=== PATIENT | female | born 1930 | race Caucasian/White ===

== ENCOUNTER 2017-05-20 15:17 | Emergency (ER) | payer MEDICARE, OTHER ==
[2017-05-20 18:50] LABS: ADD MAN DIFF? NO
[2017-05-20 18:55] LABS: WHITE BLOOD COUNT 8.5 10^3/ul (4.8-10.8)
[2017-05-20 18:55] LABS: BASOPHILS % 0.5 % (0.0-2.0); EOSINOPHILS # 0.3 10^3/ul (0.0-0.5); HEMATOCRIT 42.6 % (37.0-47.0); HEMOGLOBIN 14.6 g/dl (12.0-16.0); LYMPHOCYTES % 22.8 % (15.0-51.0); MEAN CORPUSCULAR HEMOGLOBIN 30.2 pg (29.0-33.0); MEAN CORPUSCULAR HGB CONC 34.3 g/dl (32.0-37.0); MEAN CORPUSCULAR VOLUME 88.2 fl (82.0-101.0); MEAN PLATELET VOLUME 10.1 fl (7.4-10.4); MONOCYTE # 0.6 10^3/ul (0.3-0.9); MONOCYTES % 7.5 % (0.0-11.0); NEUTROPHIL # 5.5 10^3/ul (1.6-7.5); NEUTROPHILS % 64.7 % (39.0-77.0); PLATELET COUNT 176 10^3/UL (140-415); RED BLOOD COUNT 4.83 10^6/ul (4.20-5.40); RED CELL DISTRIBUTION WIDTH 13.6 % (11.5-14.5)
[2017-05-20 19:10] LABS: ADD UMIC YES; UR ASCORBIC ACID NEGATIVE (NEGATIVE); UR BACTERIA FEW /HPF (NONE SEEN); UR BILIRUBIN (Dip) NEGATIVE (NEGATIVE); UR BLOOD (Dip) 1+ mg/dL (NEGATIVE); UR CLARITY CLEAR (CLEAR); UR COLOR STRAW (YELLOW); UR GLUCOSE (Dip) 3+ mg/dL (NEGATIVE); UR KETONES (Dip) NEGATIVE (NEGATIVE); UR LEUKOCYTE ESTERASE (Dip) TRACE Leu/ul (NEGATIVE); UR NITRITE (Dip) POSITIVE (NEGATIVE); UR RBC 0 /HPF (0-5); UR SPECIFIC GRAVITY (Dip) 1.012 (1.003-1.030); UR SQUAMOUS EPITHELIAL CELL FEW /HPF (FEW); UR TOTAL PROTEIN (Dip) NEGATIVE (NEGATIVE); UR UROBILINOGEN (Dip) NEGATIVE (NEGATIVE); UR WBC 15 /HPF (0-5)
[2017-05-20 19:20] LABS: ANION GAP 16 (8-16); BLOOD UREA NITROGEN 17 mg/dl (7-20); CALCIUM 9.3 mg/dl (8.4-10.2); CARBON DIOXIDE 28 mmol/L (21-31); CHLORIDE 105 mmol/L (97-110); CREATININE 0.65 mg/dl (0.44-1.00); GLUCOSE 117 mg/dl (70-220); POTASSIUM 3.9 mmol/L (3.5-5.1); SODIUM 145 mmol/L (135-144)
[2017-05-20 19:34] LABS: TROPONIN-I < 0.012 ng/ml (0.00-0.12)
[2017-05-20] MEDS: SOD CHLORIDE 0.9% 1,000 ML IV (22:04)
[2017-05-20] MEDS: CEFEPIME 1GM/50 ML (PMX) 50 ML IVPB (22:05)
== END 2017-05-21 00:40 | disposition home or self-care (01) ==
LOC: E/R 05-21 00:40
DX: S60.221A Contusion of right hand, initial encounter (principal); N39.0 Urinary tract infection, site not specified; I10 Essential (primary) hypertension; E11.9 Type 2 diabetes mellitus without complications; J45.909 Unspecified asthma, uncomplicated; I25.10 Atherosclerotic heart disease of native coronary artery without angina pectoris; E03.9 Hypothyroidism, unspecified; W01.0XXA Fall on same level from slipping, tripping and stumbling without subsequent striking against object, initial encounter; Y92.9 Unspecified place or not applicable; Z79.82 Long term (current) use of aspirin; Z79.4 Long term (current) use of insulin
CPT/HCPCS: 70450; 73130-RT; 80048; 81001; 84484; 85025; 93005; 96374; 99285-25

== ENCOUNTER 2017-06-10 20:26 | Emergency (ER) | payer MEDICARE, OTHER ==
[2017-06-10] MEDS: INSULIN GLARGINE [LANtus] 3 ML PEN SC (22:58)
== END 2017-06-10 23:03 | disposition home or self-care (01) ==
LOC: FTE 20:26
DX: E11.65 Type 2 diabetes mellitus with hyperglycemia (principal); J45.909 Unspecified asthma, uncomplicated; I25.10 Atherosclerotic heart disease of native coronary artery without angina pectoris; I10 Essential (primary) hypertension; E03.9 Hypothyroidism, unspecified; Z76.0 Encounter for issue of repeat prescription; Z79.4 Long term (current) use of insulin; Z79.82 Long term (current) use of aspirin
CPT/HCPCS: 82962; 96372; 99284-25

== ENCOUNTER 2017-06-25 16:01 | Emergency (ER) | payer MEDICARE, OTHER ==
[2017-06-25] MEDS: DIPHTH/TET/ACEL PERTUSS (ADULT) 0.5 ML VIAL IM* (17:09)
[2017-06-25] MEDS: BACITRACIN 0.9 GM OINT TOP (17:21)
== END 2017-06-25 18:57 | disposition home or self-care (01) ==
LOC: E/R 16:01
DX: S80.811A Abrasion, right lower leg, initial encounter (principal); E11.9 Type 2 diabetes mellitus without complications; X58.XXXA Exposure to other specified factors, initial encounter; Y92.9 Unspecified place or not applicable; Z23 Encounter for immunization; Z79.4 Long term (current) use of insulin; Z79.82 Long term (current) use of aspirin
CPT/HCPCS: 73590; 90471; 90715; 99283-25

== ENCOUNTER 2017-06-27 09:06 | Emergency (ER) | payer MEDICARE, OTHER | END 2017-06-27 10:42 | disposition home or self-care (01) | LOC: FTE 09:06 → E/R 10:42 | DX: Z48.01 Encounter for change or removal of surgical wound dressing (principal); E11.9 Type 2 diabetes mellitus without complications; Z79.4 Long term (current) use of insulin; Z79.82 Long term (current) use of aspirin | CPT/HCPCS: 99284 ==

== ENCOUNTER 2017-08-16 12:50 | Inpatient (IN) | payer MEDICARE, OTHER ==
[2017-08-16 13:38] LABS: ADD MAN DIFF? NO
[2017-08-16] MEDS ORDERED: SOD CHLORIDE 0.9% 500 ML IV (13:40)
[2017-08-16 13:41] LABS: BASOPHILS % 0.5 % (0.0-2.0); EOSINOPHILS # 0.3 10^3/ul (0.0-0.5); EOSINOPHILS % 3.1 % (0.0-7.0); HEMATOCRIT 43.3 % (37.0-47.0); HEMOGLOBIN 14.6 g/dl (12.0-16.0); LYMPHOCYTES # 2.4 10^3/ul (0.8-2.9); LYMPHOCYTES % 27.7 % (15.0-51.0); MEAN CORPUSCULAR HEMOGLOBIN 30.1 pg (29.0-33.0); MEAN CORPUSCULAR HGB CONC 33.7 g/dl (32.0-37.0); MEAN CORPUSCULAR VOLUME 89.3 fl (82.0-101.0); MEAN PLATELET VOLUME 9.4 fl (7.4-10.4); MONOCYTE # 0.6 10^3/ul (0.3-0.9); MONOCYTES % 6.8 % (0.0-11.0); NEUTROPHIL # 5.4 10^3/ul (1.6-7.5); NEUTROPHILS % 61.3 % (39.0-77.0); PLATELET COUNT 226 10^3/UL (140-415); RED BLOOD COUNT 4.85 10^6/ul (4.20-5.40); RED CELL DISTRIBUTION WIDTH 13.1 % (11.5-14.5)
[2017-08-16 13:41] LABS: WHITE BLOOD COUNT 8.7 10^3/ul (4.8-10.8)
[2017-08-16 14:00] LABS: INR 1.09; PROTIME 14.3 Sec (11.9-14.9); PT RATIO 1.1
[2017-08-16 14:01] LABS: PARTIAL THROMBOPLASTIN TIME 52.6 Sec (25.0-35.0)
[2017-08-16 14:10] LABS: ALANINE AMINOTRANSFERASE 29 IU/L (13-69); ALBUMIN 4.2 g/dl (3.3-4.9); ALBUMIN/GLOBULIN RATIO 1.23; ALKALINE PHOSPHATASE 124 IU/L (42-121); ANION GAP 18 (8-16); ASPARTATE AMINO TRANSFERASE 21 IU/L (15-46); BILIRUBIN,INDIRECT 0.4 mg/dl (0-1.1); BILIRUBIN,TOTAL 0.4 mg/dl (0.2-1.3); BLOOD UREA NITROGEN 19 mg/dl (7-20); CALCIUM 9.6 mg/dl (8.4-10.2); CARBON DIOXIDE 29 mmol/L (21-31); CHLORIDE 103 mmol/L (97-110); CREATINE KINASE 51 IU/L (23-200); CREATININE 0.62 mg/dl (0.44-1.00); GLUCOSE 101 mg/dl (70-220); POTASSIUM 4.1 mmol/L (3.5-5.1); SODIUM 146 mmol/L (135-144); TOTAL PROTEIN 7.6 g/dl (6.1-8.1)
[2017-08-16 14:22] LABS: CK-MB 1.04 ng/ml (0.0-2.4); TROPONIN-I < 0.010 ng/ml (0.000-0.120)
[2017-08-16 14:35] LABS: B-TYPE NATRIURETIC PEPTIDE 173 PG/ML (0-450)
[2017-08-16] MEDS: SOD CHLORIDE 0.9% 500 ML IV (14:41)
[2017-08-16 14:43] LABS: FREE THYROXINE INDEX (Calc) 3.72 ug/ml (0.65-3.89); T3 UPTAKE 34.1 % (23.5-40.5); T4 (THYROXINE) 10.9 ug/dl (5.5-11.0)
[2017-08-16] MEDS ORDERED: ACETAMINOPHEN 325 MG TAB PO ×3 (17:00→19:00)
[2017-08-16] MEDS ORDERED: ONDANSETRON 4 MG INJ IV ×2 (17:00→19:00)
[2017-08-16] MEDS ORDERED: NA PHOSPHATE/BIPHOS 133 ML ENEMA PR (19:00)
[2017-08-16] MEDS ORDERED: NACL 0.9% 3 ML SYG IV (19:00)
[2017-08-16] MEDS ORDERED: hydrALAzine 20 MG INJ IV (19:00)
[2017-08-16] MEDS ORDERED: MAGNESIUM HYDROXIDE 30ML CUP PO (19:00)
[2017-08-16] MEDS ORDERED: ALBUTEROL/IPRATROPIUM (NEB) 3 ML AMP HHN (19:00)
[2017-08-16] MEDS ORDERED: NITROGLYCERIN (SL) 0.4 MG TAB SL (19:00)
[2017-08-16] MEDS ORDERED: HYDROCODONE/APAP (5/325) TAB PO (19:00)
[2017-08-16] MEDS ORDERED: morphine 2 MG INJ IV (19:00)
[2017-08-16 19:19] LABS: CREATINE KINASE 53 IU/L (23-200)
[2017-08-16] MEDS ORDERED: DEXTROSE 50% 50 ML SYRINGE IV (19:30)
[2017-08-16] MEDS ORDERED: GLUCOSE GEL 15 GRAM TUBE PO ×2 (19:30)
[2017-08-16] MEDS ORDERED: GLUCOSE GEL 15 GRAM TUBE BUCCAL (19:30)
[2017-08-16] MEDS ORDERED: PANTOPRAZOLE (EC) 40 MG TAB PO (19:30)
[2017-08-16] MEDS ORDERED: GLUCAGON 1 MG INJ IM (19:30)
[2017-08-16 19:31] LABS: CK INDEX 2.2; CK-MB 1.15 ng/ml (0.0-2.4); TROPONIN-I < 0.010 ng/ml (0.000-0.120)
[2017-08-16 19:38] LABS: FREE T4 (FREE THYROXINE) 1.11 ng/dl (0.85-1.93)
[2017-08-16] MEDS: SOD CHLORIDE 0.45% 1,000 ML IV (20:02)
[2017-08-16] MEDS: LORAZEPAM 2 MG INJ IV (20:11)
[2017-08-16] MEDS: INSULIN ASPART [NOVOLOG] 3 ML PEN SC (21:00)
[2017-08-16] MEDS: FAMOTIDINE 20 MG TAB PO (21:58)
[2017-08-16] MEDS: PENTOXIFYLLINE (SR) 400 MG TAB PO (21:58)
[2017-08-16] MEDS: ROPINIROLE 0.25 MG TAB PO (21:58)
[2017-08-16] MEDS: ATORVASTATIN 10 MG TAB PO (21:58)
[2017-08-16] MEDS: GABAPENTIN 300 MG CAP PO (21:58)
[2017-08-16] MEDS: HEPARIN 5,000 UNIT/0.5 ML VIAL SC (22:00)
[2017-08-16] MEDS: INSULIN GLARGINE [LANtus] 3 ML PEN SC (22:02)
[2017-08-17] MEDS: INSULIN ASPART [NOVOLOG] 3 ML PEN SC ×6 (01:00→21:00)
[2017-08-17 01:13] LABS: CREATINE KINASE 55 IU/L (23-200)
[2017-08-17 01:23] LABS: CK INDEX 2.4; CK-MB 1.32 ng/ml (0.0-2.4); TROPONIN-I < 0.010 ng/ml (0.000-0.120)
[2017-08-17] MEDS: ACCU-CHEK XX (02:00)
[2017-08-17] MEDS: LEVOTHYROXINE 100 MCG TAB PO (07:00)
[2017-08-17] MEDS: SOD CHLORIDE 0.45% 1,000 ML IV ×2 (07:44→12:01)
[2017-08-17] MEDS ORDERED: NON-FORMULARY/PATIENT OWN MED (Linaclotide (Linzess) 145 MCG) PO (09:00)
[2017-08-17] MEDS: HEPARIN 5,000 UNIT/0.5 ML VIAL SC ×2 (09:09→20:56)
[2017-08-17] MEDS: DEXTROSE 50% 50 ML SYRINGE IV (09:15)
[2017-08-17 09:37] LABS: ADD MAN DIFF? NO
[2017-08-17 09:43] LABS: BASOPHILS % 0.5 % (0.0-2.0); EOSINOPHILS # 0.3 10^3/ul (0.0-0.5); EOSINOPHILS % 3.3 % (0.0-7.0); HEMATOCRIT 41.2 % (37.0-47.0); HEMOGLOBIN 13.9 g/dl (12.0-16.0); LYMPHOCYTES # 2.2 10^3/ul (0.8-2.9); LYMPHOCYTES % 27.4 % (15.0-51.0); MEAN CORPUSCULAR HEMOGLOBIN 30.3 pg (29.0-33.0); MEAN CORPUSCULAR HGB CONC 33.7 g/dl (32.0-37.0); MEAN PLATELET VOLUME 9.9 fl (7.4-10.4); MONOCYTE # 0.6 10^3/ul (0.3-0.9); MONOCYTES % 7.3 % (0.0-11.0); PLATELET COUNT 219 10^3/UL (140-415); RED BLOOD COUNT 4.58 10^6/ul (4.20-5.40); RED CELL DISTRIBUTION WIDTH 13.1 % (11.5-14.5)
[2017-08-17 09:43] LABS: WHITE BLOOD COUNT 8.2 10^3/ul (4.8-10.8)
[2017-08-17] MEDS: TOLTERODINE (SR) 4 MG CAP PO (09:47)
[2017-08-17] MEDS: PENTOXIFYLLINE (SR) 400 MG TAB PO ×2 (09:48→20:46)
[2017-08-17] MEDS: OXYBUTYNIN (XL) 5 MG TAB PO (09:48)
[2017-08-17] MEDS: CHOLECALCIFEROL 2,000 UNIT CAP PO (09:49)
[2017-08-17] MEDS: GABAPENTIN 300 MG CAP PO ×3 (09:49→20:47)
[2017-08-17] MEDS: LORATADINE 10 MG TAB PO (09:49)
[2017-08-17] MEDS: FUROSEMIDE 20 MG TAB PO (09:50)
[2017-08-17] MEDS: FAMOTIDINE 20 MG TAB PO (09:50)
[2017-08-17] MEDS: CLOPIDOGREL 75 MG TAB PO (09:50)
[2017-08-17] MEDS: ASPIRIN (EC) 325 MG TAB PO (09:51)
[2017-08-17] MEDS: EMPAGLIFLOZIN 10 MG TABLET PO (09:51)
[2017-08-17] MEDS: CYANOCOBALAMIN 500 MCG TAB PO (09:54)
[2017-08-17] MEDS: Linaclotide (Linzess) 145 MCG XX ×2 (10:00→17:07)
[2017-08-17 10:06] LABS: HDL CHOLESTEROL 39 mg/dl (33-92); LDL CHOLESTEROL,CALCULATED 51 mg/dl; TRIGLYCERIDES 152 mg/dl (0-149)
[2017-08-17 10:06] LABS: CHOLESTEROL 120 mg/dl (100-200)
[2017-08-17 10:45] LABS: ANION GAP 11 (8-16); BLOOD UREA NITROGEN 14 mg/dl (7-20); CALCIUM 8.9 mg/dl (8.4-10.2); CARBON DIOXIDE 27 mmol/L (21-31); CHLORIDE 110 mmol/L (97-110); CREATININE 0.61 mg/dl (0.44-1.00); MAGNESIUM 1.8 mg/dl (1.7-2.5); PHOSPHORUS 3.4 mg/dl (2.5-4.9); POTASSIUM 3.4 mmol/L (3.5-5.1); SODIUM 145 mmol/L (135-144)
[2017-08-17 10:48] LABS: GLUCOSE 49 mg/dl (70-220)
[2017-08-17 11:28] LABS: HEMOGLOBIN A1C 7.8 % (0-5.9)
[2017-08-17] MEDS: POTASSIUM CHLORIDE (SR) 20 MEQ TAB PO (12:30)
[2017-08-17] MEDS: ROPINIROLE 0.25 MG TAB PO (20:46)
[2017-08-17] MEDS: ATORVASTATIN 10 MG TAB PO (20:46)
[2017-08-17] MEDS: INSULIN GLARGINE [LANtus] 3 ML PEN SC (20:55)
[2017-08-18] MEDS: ACCU-CHEK XX (02:00)
[2017-08-18] MEDS: Linaclotide (Linzess) 145 MCG XX (02:00)
[2017-08-18] MEDS: LEVOTHYROXINE 100 MCG TAB PO (06:14)
[2017-08-18] MEDS ORDERED: ACCU-CHEK XX (07:25)
[2017-08-18] MEDS: INSULIN ASPART [NOVOLOG] 3 ML PEN SC ×3 (07:55→17:11)
[2017-08-18 08:48] LABS: ADD MAN DIFF? NO
[2017-08-18 08:59] LABS: BASOPHILS % 0.4 % (0.0-2.0); EOSINOPHILS # 0.3 10^3/ul (0.0-0.5); EOSINOPHILS % 3.7 % (0.0-7.0); HEMOGLOBIN 14.3 g/dl (12.0-16.0); LYMPHOCYTES # 2.3 10^3/ul (0.8-2.9); LYMPHOCYTES % 25.4 % (15.0-51.0); MEAN CORPUSCULAR HEMOGLOBIN 30.4 pg (29.0-33.0); MEAN CORPUSCULAR HGB CONC 33.3 g/dl (32.0-37.0); MEAN CORPUSCULAR VOLUME 91.3 fl (82.0-101.0); MEAN PLATELET VOLUME 10.1 fl (7.4-10.4); MONOCYTE # 0.8 10^3/ul (0.3-0.9); MONOCYTES % 8.6 % (0.0-11.0); NEUTROPHIL # 5.5 10^3/ul (1.6-7.5); NEUTROPHILS % 61.3 % (39.0-77.0); PLATELET COUNT 209 10^3/UL (140-415); RED BLOOD COUNT 4.71 10^6/ul (4.20-5.40); RED CELL DISTRIBUTION WIDTH 13.3 % (11.5-14.5)
[2017-08-18 08:59] LABS: WHITE BLOOD COUNT 8.9 10^3/ul (4.8-10.8)
[2017-08-18] MEDS: FAMOTIDINE 20 MG TAB PO (09:02)
[2017-08-18] MEDS: CLOPIDOGREL 75 MG TAB PO (09:02)
[2017-08-18] MEDS: CHOLECALCIFEROL 2,000 UNIT CAP PO (09:02)
[2017-08-18] MEDS: PENTOXIFYLLINE (SR) 400 MG TAB PO (09:02)
[2017-08-18] MEDS: TOLTERODINE (SR) 4 MG CAP PO (09:02)
[2017-08-18] MEDS: LORATADINE 10 MG TAB PO (09:03)
[2017-08-18] MEDS: GABAPENTIN 300 MG CAP PO ×2 (09:03→14:05)
[2017-08-18] MEDS: OXYBUTYNIN (XL) 5 MG TAB PO (09:03)
[2017-08-18] MEDS: EMPAGLIFLOZIN 10 MG TABLET PO (09:04)
[2017-08-18] MEDS: CYANOCOBALAMIN 500 MCG TAB PO (09:04)
[2017-08-18] MEDS: FUROSEMIDE 20 MG TAB PO (09:04)
[2017-08-18] MEDS: ASPIRIN (EC) 325 MG TAB PO (09:05)
[2017-08-18] MEDS: HEPARIN 5,000 UNIT/0.5 ML VIAL SC (09:08)
[2017-08-18] MEDS: DOCUSATE SODIUM 100 MG CAP PO (09:09)
[2017-08-18 09:22] LABS: ANION GAP 13 (8-16); BLOOD UREA NITROGEN 18 mg/dl (7-20); CALCIUM 9.2 mg/dl (8.4-10.2); CARBON DIOXIDE 25 mmol/L (21-31); CHLORIDE 109 mmol/L (97-110); CREATININE 0.77 mg/dl (0.44-1.00); GLUCOSE 110 mg/dl (70-220); POTASSIUM 3.8 mmol/L (3.5-5.1); SODIUM 143 mmol/L (135-144)
== END 2017-08-18 18:47 | DRG 313 ==
LOC: E/R 12:50 → TEL 16:50
DX: R07.9 Chest pain, unspecified (principal); S00.01XA Abrasion of scalp, initial encounter; W19.XXXA Unspecified fall, initial encounter; Z79.02 Long term (current) use of antithrombotics/antiplatelets; Z95.5 Presence of coronary angioplasty implant and graft; E11.9 Type 2 diabetes mellitus without complications; E78.00 Pure hypercholesterolemia, unspecified
CPT/HCPCS: 70450; 70551; 71045; 72125; 80048; 80053; 80061; 82550; 82553; 82962; 83036; 83735; 83880; 84100; 84436; 84439; 84443; 84479; 84484; 85025; 85610; 85730; 92610; 93005; 93306; 93880; 93970; 97116; 97162; 97165; 97530; 99285-25; G0378

== ENCOUNTER 2017-08-18 18:52 | Inpatient (IN) | payer MEDICARE, OTHER ==
[2017-08-18] MEDS ORDERED: GLUCOSE GEL 15 GRAM TUBE PO ×2 (20:55)
[2017-08-18] MEDS ORDERED: GLUCOSE GEL 15 GRAM TUBE BUCCAL (20:55)
[2017-08-18] MEDS ORDERED: morphine 2 MG INJ IV (20:55)
[2017-08-18] MEDS ORDERED: ONDANSETRON 4 MG INJ IV (20:55)
[2017-08-18] MEDS: Linaclotide (Linzess) 145 MCG XX (20:55)
[2017-08-18] MEDS ORDERED: NACL 0.9% 3 ML SYG IV (20:55)
[2017-08-18] MEDS ORDERED: GLUCAGON 1 MG INJ IM (20:55)
[2017-08-18] MEDS ORDERED: DEXTROSE 50% 50 ML SYRINGE IV ×2 (20:55)
[2017-08-18] MEDS ORDERED: hydrALAzine 20 MG INJ IV (20:55)
[2017-08-18] MEDS ORDERED: NA PHOSPHATE/BIPHOS 133 ML ENEMA PR (20:55)
[2017-08-18] MEDS: INSULIN ASPART [NOVOLOG] 3 ML PEN SC (21:00)
[2017-08-18] MEDS: GABAPENTIN 300 MG CAP PO (21:33)
[2017-08-18] MEDS: PENTOXIFYLLINE (SR) 400 MG TAB PO (21:34)
[2017-08-18] MEDS: ROPINIROLE 0.25 MG TAB PO (21:34)
[2017-08-18] MEDS: ATORVASTATIN 10 MG TAB PO (21:34)
[2017-08-18] MEDS: HEPARIN 5,000 UNIT/0.5 ML VIAL SC (21:41)
[2017-08-19] MEDS: ACCU-CHEK XX (02:00)
[2017-08-19 03:35] LABS: ADD UMIC YES; UR ASCORBIC ACID NEGATIVE (NEGATIVE); UR BACTERIA FEW /HPF (NONE SEEN); UR BILIRUBIN (Dip) NEGATIVE (NEGATIVE); UR BLOOD (Dip) 1+ mg/dL (NEGATIVE); UR BUDDING YEAST FEW /HPF (NONE SEEN); UR CLARITY CLOUDY (CLEAR); UR COLOR YELLOW (YELLOW); UR GLUCOSE (Dip) 3+ mg/dL (NEGATIVE); UR KETONES (Dip) NEGATIVE (NEGATIVE); UR LEUKOCYTE ESTERASE (Dip) 3+ Leu/ul (NEGATIVE); UR NITRITE (Dip) NEGATIVE (NEGATIVE); UR RBC 6 /HPF (0-5); UR SPECIFIC GRAVITY (Dip) 1.017 (1.003-1.030); UR SQUAMOUS EPITHELIAL CELL FEW /HPF (FEW); UR TOTAL PROTEIN (Dip) NEGATIVE (NEGATIVE); UR UROBILINOGEN (Dip) NEGATIVE (NEGATIVE); UR WBC 182 /HPF (0-5)
[2017-08-19] MEDS: Linaclotide (Linzess) 145 MCG XX ×2 (04:55→12:48)
[2017-08-19] MEDS ORDERED: BISACODYL 10 MG SUPP PR (05:00)
[2017-08-19] MEDS: LEVOTHYROXINE 100 MCG TAB PO (06:13)
[2017-08-19] MEDS: MAGNESIUM HYDROXIDE 30ML CUP PO (06:13)
[2017-08-19 07:10] LABS: ADD MAN DIFF? NO
[2017-08-19 07:14] LABS: BASOPHIL # 0.1 10^3/ul (0.0-0.1); BASOPHILS % 0.8 % (0.0-2.0); EOSINOPHILS # 0.3 10^3/ul (0.0-0.5); EOSINOPHILS % 4.3 % (0.0-7.0); HEMATOCRIT 45.1 % (37.0-47.0); HEMOGLOBIN 14.8 g/dl (12.0-16.0); LYMPHOCYTES # 2.1 10^3/ul (0.8-2.9); LYMPHOCYTES % 26.5 % (15.0-51.0); MEAN CORPUSCULAR HEMOGLOBIN 30.1 pg (29.0-33.0); MEAN CORPUSCULAR HGB CONC 32.8 g/dl (32.0-37.0); MEAN CORPUSCULAR VOLUME 91.9 fl (82.0-101.0); MEAN PLATELET VOLUME 9.7 fl (7.4-10.4); MONOCYTE # 0.8 10^3/ul (0.3-0.9); MONOCYTES % 9.8 % (0.0-11.0); NEUTROPHIL # 4.7 10^3/ul (1.6-7.5); NEUTROPHILS % 58.2 % (39.0-77.0); PLATELET COUNT 201 10^3/UL (140-415); RED BLOOD COUNT 4.91 10^6/ul (4.20-5.40); RED CELL DISTRIBUTION WIDTH 13.2 % (11.5-14.5)
[2017-08-19] MEDS: INSULIN ASPART [NOVOLOG] 3 ML PEN SC ×4 (07:35→20:23)
[2017-08-19 08:00] LABS: ALANINE AMINOTRANSFERASE 23 IU/L (13-69); ALBUMIN 3.7 g/dl (3.3-4.9); ALBUMIN/GLOBULIN RATIO 1.15; ALKALINE PHOSPHATASE 98 IU/L (42-121); ANION GAP 15 (8-16); ASPARTATE AMINO TRANSFERASE 19 IU/L (15-46); BILIRUBIN,INDIRECT 0.8 mg/dl (0-1.1); BILIRUBIN,TOTAL 0.8 mg/dl (0.2-1.3); BLOOD UREA NITROGEN 23 mg/dl (7-20); CALCIUM 9.1 mg/dl (8.4-10.2); CARBON DIOXIDE 27 mmol/L (21-31); CHLORIDE 105 mmol/L (97-110); CREATININE 0.87 mg/dl (0.44-1.00); GLUCOSE 142 mg/dl (70-220); POTASSIUM 3.8 mmol/L (3.5-5.1); SODIUM 143 mmol/L (135-144); TOTAL PROTEIN 6.9 g/dl (6.1-8.1)
[2017-08-19] MEDS: LACTULOSE 30ML CUP PO (08:39)
[2017-08-19] MEDS: GABAPENTIN 300 MG CAP PO ×3 (08:40→20:21)
[2017-08-19] MEDS: LORATADINE 10 MG TAB PO (08:40)
[2017-08-19] MEDS: ASPIRIN (EC) 325 MG TAB PO (08:40)
[2017-08-19] MEDS: TOLTERODINE (SR) 4 MG CAP PO (08:40)
[2017-08-19] MEDS: EMPAGLIFLOZIN 10 MG TABLET PO (08:40)
[2017-08-19] MEDS: FAMOTIDINE 20 MG TAB PO (08:40)
[2017-08-19] MEDS: OXYBUTYNIN (XL) 5 MG TAB PO (08:40)
[2017-08-19] MEDS: CHOLECALCIFEROL 2,000 UNIT CAP PO (08:41)
[2017-08-19] MEDS: PENTOXIFYLLINE (SR) 400 MG TAB PO ×2 (08:41→20:21)
[2017-08-19] MEDS: CYANOCOBALAMIN 500 MCG TAB PO (08:41)
[2017-08-19] MEDS: CLOPIDOGREL 75 MG TAB PO (08:41)
[2017-08-19] MEDS: FUROSEMIDE 20 MG TAB PO (08:42)
[2017-08-19] MEDS: HEPARIN 5,000 UNIT/0.5 ML VIAL SC ×2 (08:43→20:24)
[2017-08-19] MEDS: NON-FORMULARY/PATIENT OWN MED (Linaclotide (Linzess) 145 MCG) PO (08:44)
[2017-08-19] MEDS: ACETAMINOPHEN 325 MG TAB PO (10:43)
[2017-08-19] MEDS: LINACLOTIDE 145 MCG PO (15:47)
[2017-08-19] MEDS: LEVOFLOXACIN 500 MG TAB PO (17:07)
[2017-08-19] MEDS: ATORVASTATIN 10 MG TAB PO (20:20)
[2017-08-19] MEDS: ROPINIROLE 0.25 MG TAB PO (20:21)
[2017-08-19] MEDS: INSULIN GLARGINE [LANtus] 3 ML PEN SC (20:22)
[2017-08-20] MEDS: ACCU-CHEK XX (02:36)
[2017-08-20] MEDS: LEVOFLOXACIN 250 MG TAB PO (05:33)
[2017-08-20] MEDS: LEVOTHYROXINE 100 MCG TAB PO (05:33)
[2017-08-20] MEDS: INSULIN ASPART [NOVOLOG] 3 ML PEN SC ×4 (07:35→20:39)
[2017-08-20] MEDS: LINACLOTIDE 145 MCG PO (08:44)
[2017-08-20] MEDS: FAMOTIDINE 20 MG TAB PO (08:45)
[2017-08-20] MEDS: PENTOXIFYLLINE (SR) 400 MG TAB PO ×2 (08:45→20:32)
[2017-08-20] MEDS: EMPAGLIFLOZIN 10 MG TABLET PO (08:45)
[2017-08-20] MEDS: TOLTERODINE (SR) 4 MG CAP PO (08:45)
[2017-08-20] MEDS: GABAPENTIN 300 MG CAP PO ×3 (08:46→20:31)
[2017-08-20] MEDS: OXYBUTYNIN (XL) 5 MG TAB PO (08:46)
[2017-08-20] MEDS: CHOLECALCIFEROL 2,000 UNIT CAP PO (08:46)
[2017-08-20] MEDS: CYANOCOBALAMIN 500 MCG TAB PO (08:46)
[2017-08-20] MEDS: ASPIRIN (EC) 325 MG TAB PO (08:46)
[2017-08-20] MEDS: CLOPIDOGREL 75 MG TAB PO (08:46)
[2017-08-20] MEDS: DOCUSATE SODIUM 100 MG CAP PO (08:46)
[2017-08-20] MEDS: LORATADINE 10 MG TAB PO (08:46)
[2017-08-20] MEDS: FUROSEMIDE 20 MG TAB PO (08:47)
[2017-08-20] MEDS: HEPARIN 5,000 UNIT/0.5 ML VIAL SC ×2 (08:51→20:41)
[2017-08-20] MEDS: CARBOXYMETHYLCELLULOSE 0.5% 0.4 ML OPH BOTH EYES ×3 (12:38→20:34)
[2017-08-20] MEDS: ATORVASTATIN 10 MG TAB PO (20:31)
[2017-08-20] MEDS: ROPINIROLE 0.25 MG TAB PO (20:32)
[2017-08-20] MEDS: INSULIN GLARGINE [LANtus] 3 ML PEN SC (20:40)
[2017-08-21] MEDS: ALBUTEROL/IPRATROPIUM (NEB) 3 ML AMP HHN (00:24)
[2017-08-21] MEDS: NITROGLYCERIN (SL) 0.4 MG TAB SL ×2 (00:29→00:36)
[2017-08-21] MEDS: ACCU-CHEK XX (02:00)
[2017-08-21] MEDS: LEVOFLOXACIN 250 MG TAB PO (05:50)
[2017-08-21] MEDS: LEVOTHYROXINE 100 MCG TAB PO (05:50)
[2017-08-21] MEDS: INSULIN ASPART [NOVOLOG] 3 ML PEN SC ×4 (08:59→20:43)
[2017-08-21] MEDS: CHOLECALCIFEROL 2,000 UNIT CAP PO (09:01)
[2017-08-21] MEDS: HEPARIN 5,000 UNIT/0.5 ML VIAL SC ×2 (09:01→20:42)
[2017-08-21] MEDS: CYANOCOBALAMIN 500 MCG TAB PO (09:01)
[2017-08-21] MEDS: LINAGLIPTIN 5 MG TABLET PO (09:02)
[2017-08-21] MEDS: TOLTERODINE (SR) 4 MG CAP PO (09:02)
[2017-08-21] MEDS: LORATADINE 10 MG TAB PO (09:03)
[2017-08-21] MEDS: LINACLOTIDE 145 MCG PO (09:03)
[2017-08-21] MEDS: CARBOXYMETHYLCELLULOSE 0.5% 0.4 ML OPH BOTH EYES ×4 (09:03→20:40)
[2017-08-21] MEDS: PENTOXIFYLLINE (SR) 400 MG TAB PO ×3 (09:04→17:29)
[2017-08-21] MEDS: OXYBUTYNIN (XL) 5 MG TAB PO (09:04)
[2017-08-21] MEDS: FUROSEMIDE 20 MG TAB PO (09:05)
[2017-08-21] MEDS: FAMOTIDINE 20 MG TAB PO (09:05)
[2017-08-21] MEDS: GABAPENTIN 300 MG CAP PO ×3 (09:05→20:40)
[2017-08-21] MEDS: CLOPIDOGREL 75 MG TAB PO (09:05)
[2017-08-21] MEDS: ASPIRIN (EC) 325 MG TAB PO (09:05)
[2017-08-21] MEDS: EMPAGLIFLOZIN 10 MG TABLET PO (09:05)
[2017-08-21] MEDS: METOPROLOL (XL) 25 MG TAB PO ×2 (09:24→20:41)
[2017-08-21] MEDS: ATORVASTATIN 10 MG TAB PO (20:41)
[2017-08-21] MEDS: INSULIN GLARGINE [LANtus] 3 ML PEN SC (20:43)
[2017-08-21] MEDS: ROPINIROLE 0.25 MG TAB PO (20:44)
[2017-08-21 22:45] LABS: ADD UMIC YES; UR ASCORBIC ACID NEGATIVE (NEGATIVE); UR BACTERIA FEW /HPF (NONE SEEN); UR BILIRUBIN (Dip) NEGATIVE (NEGATIVE); UR BLOOD (Dip) NEGATIVE (NEGATIVE); UR CLARITY CLEAR (CLEAR); UR COLOR STRAW (YELLOW); UR GLUCOSE (Dip) 3+ mg/dL (NEGATIVE); UR KETONES (Dip) NEGATIVE (NEGATIVE); UR LEUKOCYTE ESTERASE (Dip) 1+ Leu/ul (NEGATIVE); UR NITRITE (Dip) POSITIVE (NEGATIVE); UR RBC 3 /HPF (0-5); UR SPECIFIC GRAVITY (Dip) 1.024 (1.003-1.030); UR TOTAL PROTEIN (Dip) NEGATIVE (NEGATIVE); UR UROBILINOGEN (Dip) NEGATIVE (NEGATIVE); UR WBC 25 /HPF (0-5)
[2017-08-21] MEDS: ACETAMINOPHEN 325 MG TAB PO (22:46)
[2017-08-22] MEDS: ACCU-CHEK XX (02:22)
[2017-08-22] MEDS: LEVOFLOXACIN 500 MG TAB PO (05:59)
[2017-08-22] MEDS: LEVOTHYROXINE 100 MCG TAB PO (05:59)
[2017-08-22] MEDS: INSULIN ASPART [NOVOLOG] 3 ML PEN SC ×4 (07:35→20:42)
[2017-08-22] MEDS: PENTOXIFYLLINE (SR) 400 MG TAB PO ×3 (08:03→17:50)
[2017-08-22] MEDS: HEPARIN 5,000 UNIT/0.5 ML VIAL SC ×2 (09:41→20:40)
[2017-08-22] MEDS: ASPIRIN (EC) 325 MG TAB PO (09:42)
[2017-08-22] MEDS: GABAPENTIN 300 MG CAP PO ×3 (09:42→20:43)
[2017-08-22] MEDS: CYANOCOBALAMIN 500 MCG TAB PO (09:42)
[2017-08-22] MEDS: LINACLOTIDE 145 MCG PO (09:42)
[2017-08-22] MEDS: CLOPIDOGREL 75 MG TAB PO (09:43)
[2017-08-22] MEDS: OXYBUTYNIN (XL) 5 MG TAB PO (09:43)
[2017-08-22] MEDS: LORATADINE 10 MG TAB PO (09:43)
[2017-08-22] MEDS: TOLTERODINE (SR) 4 MG CAP PO (09:43)
[2017-08-22] MEDS: CHOLECALCIFEROL 2,000 UNIT CAP PO (09:44)
[2017-08-22] MEDS: EMPAGLIFLOZIN 10 MG TABLET PO (09:44)
[2017-08-22] MEDS: FAMOTIDINE 20 MG TAB PO (09:44)
[2017-08-22] MEDS: METOPROLOL (XL) 25 MG TAB PO ×2 (09:44→20:44)
[2017-08-22] MEDS: FUROSEMIDE 20 MG TAB PO (09:44)
[2017-08-22] MEDS: CARBOXYMETHYLCELLULOSE 0.5% 0.4 ML OPH BOTH EYES ×4 (09:45→20:42)
[2017-08-22] MEDS: LINAGLIPTIN 5 MG TABLET PO (09:45)
[2017-08-22] MEDS: INSULIN GLARGINE [LANtus] 3 ML PEN SC (20:41)
[2017-08-22] MEDS: ROPINIROLE 0.25 MG TAB PO (20:42)
[2017-08-22] MEDS: ATORVASTATIN 10 MG TAB PO (20:42)
[2017-08-23] MEDS: ACCU-CHEK XX (02:00)
[2017-08-23] MEDS: LEVOFLOXACIN 500 MG TAB PO (06:06)
[2017-08-23] MEDS: LEVOTHYROXINE 100 MCG TAB PO (06:16)
[2017-08-23] MEDS: INSULIN ASPART [NOVOLOG] 3 ML PEN SC ×4 (08:47→21:44)
[2017-08-23] MEDS: HEPARIN 5,000 UNIT/0.5 ML VIAL SC ×2 (08:48→21:40)
[2017-08-23] MEDS: PENTOXIFYLLINE (SR) 400 MG TAB PO ×3 (08:50→17:46)
[2017-08-23] MEDS: LINACLOTIDE 145 MCG PO (08:51)
[2017-08-23] MEDS: CARBOXYMETHYLCELLULOSE 0.5% 0.4 ML OPH BOTH EYES ×4 (08:51→21:33)
[2017-08-23] MEDS: OXYBUTYNIN (XL) 5 MG TAB PO (08:52)
[2017-08-23] MEDS: ASPIRIN (EC) 325 MG TAB PO (08:52)
[2017-08-23] MEDS: TOLTERODINE (SR) 4 MG CAP PO (08:52)
[2017-08-23] MEDS: LORATADINE 10 MG TAB PO (08:52)
[2017-08-23] MEDS: GABAPENTIN 300 MG CAP PO ×3 (08:53→21:32)
[2017-08-23] MEDS: EMPAGLIFLOZIN 10 MG TABLET PO (08:53)
[2017-08-23] MEDS: FAMOTIDINE 20 MG TAB PO (08:53)
[2017-08-23] MEDS: FUROSEMIDE 20 MG TAB PO (08:53)
[2017-08-23] MEDS: CLOPIDOGREL 75 MG TAB PO (08:53)
[2017-08-23] MEDS: METOPROLOL (XL) 25 MG TAB PO ×2 (08:54→21:33)
[2017-08-23] MEDS: LINAGLIPTIN 5 MG TABLET PO (08:54)
[2017-08-23] MEDS: CHOLECALCIFEROL 2,000 UNIT CAP PO (08:54)
[2017-08-23] MEDS: CYANOCOBALAMIN 500 MCG TAB PO (08:55)
[2017-08-23] MEDS: ATORVASTATIN 10 MG TAB PO (21:32)
[2017-08-23] MEDS: ROPINIROLE 0.25 MG TAB PO (21:32)
[2017-08-23] MEDS: INSULIN GLARGINE [LANtus] 3 ML PEN SC (21:43)
[2017-08-24] MEDS: ACCU-CHEK XX (02:00)
[2017-08-24] MEDS: LEVOFLOXACIN 500 MG TAB PO (06:52)
[2017-08-24] MEDS: LEVOTHYROXINE 100 MCG TAB PO (06:52)
[2017-08-24] MEDS: INSULIN ASPART [NOVOLOG] 3 ML PEN SC ×4 (07:35→20:43)
[2017-08-24] MEDS: HEPARIN 5,000 UNIT/0.5 ML VIAL SC ×2 (08:46→20:40)
[2017-08-24] MEDS: PENTOXIFYLLINE (SR) 400 MG TAB PO ×3 (08:46→17:42)
[2017-08-24] MEDS: FUROSEMIDE 20 MG TAB PO (08:46)
[2017-08-24] MEDS: FAMOTIDINE 20 MG TAB PO (08:46)
[2017-08-24] MEDS: CHOLECALCIFEROL 2,000 UNIT CAP PO (08:46)
[2017-08-24] MEDS: ASPIRIN (EC) 325 MG TAB PO (08:46)
[2017-08-24] MEDS: LINAGLIPTIN 5 MG TABLET PO (08:46)
[2017-08-24] MEDS: CLOPIDOGREL 75 MG TAB PO (08:46)
[2017-08-24] MEDS: GABAPENTIN 300 MG CAP PO ×3 (08:47→20:29)
[2017-08-24] MEDS: TOLTERODINE (SR) 4 MG CAP PO (08:47)
[2017-08-24] MEDS: EMPAGLIFLOZIN 10 MG TABLET PO (08:47)
[2017-08-24] MEDS: LORATADINE 10 MG TAB PO (08:47)
[2017-08-24] MEDS: OXYBUTYNIN (XL) 5 MG TAB PO (08:47)
[2017-08-24] MEDS: CYANOCOBALAMIN 500 MCG TAB PO (08:47)
[2017-08-24] MEDS: CARBOXYMETHYLCELLULOSE 0.5% 0.4 ML OPH BOTH EYES ×4 (08:47→20:30)
[2017-08-24] MEDS: LINACLOTIDE 145 MCG PO (08:48)
[2017-08-24] MEDS: METOPROLOL (XL) 25 MG TAB PO ×2 (08:49→20:29)
[2017-08-24] MEDS: ROPINIROLE 0.25 MG TAB PO (20:29)
[2017-08-24] MEDS: ACETAMINOPHEN 325 MG TAB PO (20:30)
[2017-08-24] MEDS: ATORVASTATIN 10 MG TAB PO (20:30)
[2017-08-24] MEDS: INSULIN GLARGINE [LANtus] 3 ML PEN SC (20:41)
[2017-08-25] MEDS: ACCU-CHEK XX (02:00)
[2017-08-25] MEDS: LEVOFLOXACIN 500 MG TAB PO (06:07)
[2017-08-25] MEDS: LEVOTHYROXINE 100 MCG TAB PO (06:09)
[2017-08-25] MEDS: INSULIN ASPART [NOVOLOG] 3 ML PEN SC ×4 (07:35→21:06)
[2017-08-25] MEDS: OXYBUTYNIN (XL) 5 MG TAB PO (08:52)
[2017-08-25] MEDS: GABAPENTIN 300 MG CAP PO ×3 (08:52→20:44)
[2017-08-25] MEDS: LINAGLIPTIN 5 MG TABLET PO (08:53)
[2017-08-25] MEDS: LORATADINE 10 MG TAB PO (08:53)
[2017-08-25] MEDS: ASPIRIN (EC) 325 MG TAB PO (08:53)
[2017-08-25] MEDS: FAMOTIDINE 20 MG TAB PO (08:53)
[2017-08-25] MEDS: EMPAGLIFLOZIN 10 MG TABLET PO (08:53)
[2017-08-25] MEDS: PENTOXIFYLLINE (SR) 400 MG TAB PO ×3 (08:53→17:32)
[2017-08-25] MEDS: TOLTERODINE (SR) 4 MG CAP PO (08:53)
[2017-08-25] MEDS: CLOPIDOGREL 75 MG TAB PO (08:53)
[2017-08-25] MEDS: CHOLECALCIFEROL 2,000 UNIT CAP PO (08:53)
[2017-08-25] MEDS: CARBOXYMETHYLCELLULOSE 0.5% 0.4 ML OPH BOTH EYES ×4 (08:54→21:07)
[2017-08-25] MEDS: HEPARIN 5,000 UNIT/0.5 ML VIAL SC ×2 (08:55→21:06)
[2017-08-25] MEDS: METOPROLOL (XL) 25 MG TAB PO ×2 (09:00→20:50)
[2017-08-25] MEDS: FUROSEMIDE 20 MG TAB PO (09:00)
[2017-08-25] MEDS: LINACLOTIDE 145 MCG PO (09:04)
[2017-08-25] MEDS: CYANOCOBALAMIN 500 MCG TAB PO (12:37)
[2017-08-25] MEDS: ACETAMINOPHEN 325 MG TAB PO (20:44)
[2017-08-25] MEDS: ATORVASTATIN 10 MG TAB PO (20:49)
[2017-08-25] MEDS: INSULIN GLARGINE [LANtus] 3 ML PEN SC (21:07)
[2017-08-25] MEDS: ROPINIROLE 0.25 MG TAB PO (21:07)
[2017-08-26] MEDS: ACCU-CHEK XX (02:00)
[2017-08-26] MEDS: LEVOFLOXACIN 500 MG TAB PO (05:57)
[2017-08-26] MEDS: LEVOTHYROXINE 100 MCG TAB PO (05:57)
[2017-08-26] MEDS: EMPAGLIFLOZIN 10 MG TABLET PO (08:42)
[2017-08-26] MEDS: LINACLOTIDE 145 MCG PO (08:42)
[2017-08-26] MEDS: GABAPENTIN 300 MG CAP PO ×3 (08:43→20:27)
[2017-08-26] MEDS: PENTOXIFYLLINE (SR) 400 MG TAB PO ×3 (08:43→17:37)
[2017-08-26] MEDS: ASPIRIN (EC) 325 MG TAB PO (08:43)
[2017-08-26] MEDS: FAMOTIDINE 20 MG TAB PO (08:45)
[2017-08-26] MEDS: FUROSEMIDE 20 MG TAB PO (08:45)
[2017-08-26] MEDS: TOLTERODINE (SR) 4 MG CAP PO (08:45)
[2017-08-26] MEDS: LORATADINE 10 MG TAB PO (08:45)
[2017-08-26] MEDS: CLOPIDOGREL 75 MG TAB PO (08:46)
[2017-08-26] MEDS: LINAGLIPTIN 5 MG TABLET PO (08:46)
[2017-08-26] MEDS: HEPARIN 5,000 UNIT/0.5 ML VIAL SC ×2 (08:47→20:35)
[2017-08-26] MEDS: OXYBUTYNIN (XL) 5 MG TAB PO (08:48)
[2017-08-26] MEDS: INSULIN ASPART [NOVOLOG] 3 ML PEN SC ×4 (08:50→20:34)
[2017-08-26] MEDS: CARBOXYMETHYLCELLULOSE 0.5% 0.4 ML OPH BOTH EYES ×4 (08:52→20:38)
[2017-08-26] MEDS: METOPROLOL (XL) 25 MG TAB PO ×2 (09:00→20:29)
[2017-08-26] MEDS: ATORVASTATIN 10 MG TAB PO (20:28)
[2017-08-26] MEDS: ROPINIROLE 0.25 MG TAB PO (20:28)
[2017-08-26] MEDS: INSULIN GLARGINE [LANtus] 3 ML PEN SC (20:35)
[2017-08-27] MEDS: ACCU-CHEK XX (01:32)
[2017-08-27] MEDS: LEVOFLOXACIN 500 MG TAB PO (06:08)
[2017-08-27] MEDS: LEVOTHYROXINE 100 MCG TAB PO (06:08)
[2017-08-27] MEDS: INSULIN ASPART [NOVOLOG] 3 ML PEN SC ×4 (07:35→20:57)
[2017-08-27] MEDS: LINACLOTIDE 145 MCG PO (09:20)
[2017-08-27] MEDS: LORATADINE 10 MG TAB PO (09:20)
[2017-08-27] MEDS: PENTOXIFYLLINE (SR) 400 MG TAB PO ×3 (09:20→17:14)
[2017-08-27] MEDS: CARBOXYMETHYLCELLULOSE 0.5% 0.4 ML OPH BOTH EYES ×4 (09:20→20:34)
[2017-08-27] MEDS: EMPAGLIFLOZIN 10 MG TABLET PO (09:21)
[2017-08-27] MEDS: OXYBUTYNIN (XL) 5 MG TAB PO (09:21)
[2017-08-27] MEDS: ASPIRIN (EC) 325 MG TAB PO (09:21)
[2017-08-27] MEDS: GABAPENTIN 300 MG CAP PO ×3 (09:22→20:34)
[2017-08-27] MEDS: FUROSEMIDE 20 MG TAB PO (09:22)
[2017-08-27] MEDS: CLOPIDOGREL 75 MG TAB PO (09:22)
[2017-08-27] MEDS: FAMOTIDINE 20 MG TAB PO (09:22)
[2017-08-27] MEDS: METOPROLOL (XL) 25 MG TAB PO ×2 (09:23→20:33)
[2017-08-27] MEDS: LINAGLIPTIN 5 MG TABLET PO (09:23)
[2017-08-27] MEDS: HEPARIN 5,000 UNIT/0.5 ML VIAL SC ×2 (09:24→21:00)
[2017-08-27] MEDS: ROPINIROLE 0.25 MG TAB PO (20:33)
[2017-08-27] MEDS: ATORVASTATIN 10 MG TAB PO (20:33)
[2017-08-27] MEDS: ACETAMINOPHEN 325 MG TAB PO (20:40)
[2017-08-27] MEDS: LORAZEPAM 2 MG INJ IV (20:41)
[2017-08-27] MEDS: INSULIN GLARGINE [LANtus] 3 ML PEN SC (20:56)
[2017-08-28] MEDS: ACCU-CHEK XX (02:00)
[2017-08-28] MEDS: LEVOFLOXACIN 500 MG TAB PO (06:30)
[2017-08-28] MEDS: LEVOTHYROXINE 100 MCG TAB PO (06:30)
[2017-08-28] MEDS: INSULIN ASPART [NOVOLOG] 3 ML PEN SC ×4 (07:35→21:03)
[2017-08-28] MEDS: PENTOXIFYLLINE (SR) 400 MG TAB PO ×3 (08:42→17:14)
[2017-08-28] MEDS: ASPIRIN (EC) 325 MG TAB PO (10:15)
[2017-08-28] MEDS: HYDROCODONE/APAP (5/325) TAB PO (10:15)
[2017-08-28] MEDS: OXYBUTYNIN (XL) 5 MG TAB PO (10:15)
[2017-08-28] MEDS: LORATADINE 10 MG TAB PO (10:16)
[2017-08-28] MEDS: GABAPENTIN 300 MG CAP PO ×3 (10:17→21:05)
[2017-08-28] MEDS: FUROSEMIDE 20 MG TAB PO (10:17)
[2017-08-28] MEDS: METOPROLOL (XL) 25 MG TAB PO ×2 (10:17→21:07)
[2017-08-28] MEDS: CLOPIDOGREL 75 MG TAB PO (10:17)
[2017-08-28] MEDS: LINAGLIPTIN 5 MG TABLET PO (10:17)
[2017-08-28] MEDS: LINACLOTIDE 145 MCG PO (10:18)
[2017-08-28] MEDS: EMPAGLIFLOZIN 10 MG TABLET PO (10:18)
[2017-08-28] MEDS: CARBOXYMETHYLCELLULOSE 0.5% 0.4 ML OPH BOTH EYES ×4 (10:18→21:04)
[2017-08-28] MEDS: FAMOTIDINE 20 MG TAB PO (10:18)
[2017-08-28] MEDS: HEPARIN 5,000 UNIT/0.5 ML VIAL SC ×2 (10:24→21:04)
[2017-08-28] MEDS: INSULIN GLARGINE [LANtus] 3 ML PEN SC (21:02)
[2017-08-28] MEDS: ATORVASTATIN 10 MG TAB PO (21:05)
[2017-08-28] MEDS: ROPINIROLE 0.25 MG TAB PO (21:05)
[2017-08-29] MEDS: ACCU-CHEK XX (01:25)
[2017-08-29] MEDS: INSULIN ASPART [NOVOLOG] 3 ML PEN SC ×4 (07:35→20:54)
[2017-08-29] MEDS: LEVOTHYROXINE 100 MCG TAB PO (07:41)
[2017-08-29] MEDS: PENTOXIFYLLINE (SR) 400 MG TAB PO ×3 (07:41→17:46)
[2017-08-29] MEDS: HEPARIN 5,000 UNIT/0.5 ML VIAL SC ×2 (08:42→20:55)
[2017-08-29] MEDS: LINACLOTIDE 145 MCG PO (09:31)
[2017-08-29] MEDS: HYDROCODONE/APAP (5/325) TAB PO (09:31)
[2017-08-29] MEDS: FUROSEMIDE 20 MG TAB PO (09:32)
[2017-08-29] MEDS: CARBOXYMETHYLCELLULOSE 0.5% 0.4 ML OPH BOTH EYES ×4 (09:32→20:41)
[2017-08-29] MEDS: GABAPENTIN 300 MG CAP PO ×3 (09:32→20:41)
[2017-08-29] MEDS: LINAGLIPTIN 5 MG TABLET PO (09:32)
[2017-08-29] MEDS: ISOSORBIDE MONONITRATE(SR)30 MG TAB PO (09:32)
[2017-08-29] MEDS: FAMOTIDINE 20 MG TAB PO (09:32)
[2017-08-29] MEDS: CLOPIDOGREL 75 MG TAB PO (09:32)
[2017-08-29] MEDS: LORATADINE 10 MG TAB PO (09:32)
[2017-08-29] MEDS: EMPAGLIFLOZIN 10 MG TABLET PO (09:33)
[2017-08-29] MEDS: OXYBUTYNIN (XL) 5 MG TAB PO (09:33)
[2017-08-29] MEDS: METOPROLOL (XL) 25 MG TAB PO ×2 (09:33→20:42)
[2017-08-29] MEDS: ASPIRIN (EC) 325 MG TAB PO (09:34)
[2017-08-29] MEDS: ATORVASTATIN 10 MG TAB PO (20:41)
[2017-08-29] MEDS: ROPINIROLE 0.25 MG TAB PO (20:41)
[2017-08-29] MEDS: INSULIN GLARGINE [LANtus] 3 ML PEN SC (20:54)
[2017-08-29 22:42] LABS: ADD UMIC YES; UR ASCORBIC ACID NEGATIVE (NEGATIVE); UR BILIRUBIN (Dip) NEGATIVE (NEGATIVE); UR BLOOD (Dip) NEGATIVE (NEGATIVE); UR CLARITY CLEAR (CLEAR); UR COLOR STRAW (YELLOW); UR GLUCOSE (Dip) 3+ mg/dL (NEGATIVE); UR KETONES (Dip) NEGATIVE (NEGATIVE); UR LEUKOCYTE ESTERASE (Dip) TRACE Leu/ul (NEGATIVE); UR NITRITE (Dip) NEGATIVE (NEGATIVE); UR RBC 0 /HPF (0-5); UR SPECIFIC GRAVITY (Dip) 1.018 (1.003-1.030); UR TOTAL PROTEIN (Dip) NEGATIVE (NEGATIVE); UR UROBILINOGEN (Dip) NEGATIVE (NEGATIVE); UR WBC 6 /HPF (0-5)
[2017-08-30] MEDS: ACCU-CHEK XX (02:33)
[2017-08-30] MEDS: LEVOTHYROXINE 100 MCG TAB PO (06:09)
[2017-08-30] MEDS: INSULIN ASPART [NOVOLOG] 3 ML PEN SC ×4 (07:35→21:07)
[2017-08-30] MEDS: PENTOXIFYLLINE (SR) 400 MG TAB PO ×3 (07:45→17:37)
[2017-08-30] MEDS: LINACLOTIDE 145 MCG PO (08:31)
[2017-08-30] MEDS: ASPIRIN (EC) 325 MG TAB PO (08:33)
[2017-08-30] MEDS: CARBOXYMETHYLCELLULOSE 0.5% 0.4 ML OPH BOTH EYES ×4 (08:33→21:00)
[2017-08-30] MEDS: HEPARIN 5,000 UNIT/0.5 ML VIAL SC ×2 (08:33→21:05)
[2017-08-30] MEDS: METOPROLOL (XL) 25 MG TAB PO ×2 (08:33→20:50)
[2017-08-30] MEDS: GABAPENTIN 300 MG CAP PO ×3 (08:33→20:49)
[2017-08-30] MEDS: OXYBUTYNIN (XL) 5 MG TAB PO (08:33)
[2017-08-30] MEDS: CLOPIDOGREL 75 MG TAB PO (08:33)
[2017-08-30] MEDS: EMPAGLIFLOZIN 10 MG TABLET PO (08:33)
[2017-08-30] MEDS: FAMOTIDINE 20 MG TAB PO (08:33)
[2017-08-30] MEDS: LINAGLIPTIN 5 MG TABLET PO (08:34)
[2017-08-30] MEDS: FUROSEMIDE 20 MG TAB PO (08:34)
[2017-08-30] MEDS: LORATADINE 10 MG TAB PO (08:35)
[2017-08-30] MEDS: ISOSORBIDE MONONITRATE(SR)30 MG TAB PO (08:35)
[2017-08-30] MEDS: ROPINIROLE 0.25 MG TAB PO (20:49)
[2017-08-30] MEDS: ATORVASTATIN 10 MG TAB PO (20:49)
[2017-08-30] MEDS: INSULIN GLARGINE [LANtus] 3 ML PEN SC (21:06)
[2017-08-31] MEDS: ACCU-CHEK XX (02:00)
[2017-08-31] MEDS: LEVOTHYROXINE 100 MCG TAB PO (06:47)
[2017-08-31] MEDS: INSULIN ASPART [NOVOLOG] 3 ML PEN SC ×4 (07:35→21:00)
[2017-08-31] MEDS: PENTOXIFYLLINE (SR) 400 MG TAB PO ×3 (08:20→17:29)
[2017-08-31] MEDS: LINACLOTIDE 145 MCG PO (08:27)
[2017-08-31] MEDS: ISOSORBIDE MONONITRATE(SR)30 MG TAB PO (08:28)
[2017-08-31] MEDS: GABAPENTIN 300 MG CAP PO ×3 (08:28→20:50)
[2017-08-31] MEDS: OXYBUTYNIN (XL) 5 MG TAB PO (08:28)
[2017-08-31] MEDS: CARBOXYMETHYLCELLULOSE 0.5% 0.4 ML OPH BOTH EYES ×4 (08:28→21:00)
[2017-08-31] MEDS: ASPIRIN (EC) 325 MG TAB PO (08:30)
[2017-08-31] MEDS: LINAGLIPTIN 5 MG TABLET PO (08:30)
[2017-08-31] MEDS: FAMOTIDINE 20 MG TAB PO (08:30)
[2017-08-31] MEDS: EMPAGLIFLOZIN 10 MG TABLET PO (08:30)
[2017-08-31] MEDS: CLOPIDOGREL 75 MG TAB PO (08:30)
[2017-08-31] MEDS: FUROSEMIDE 20 MG TAB PO (08:30)
[2017-08-31] MEDS: METOPROLOL (XL) 25 MG TAB PO ×2 (08:30→20:51)
[2017-08-31] MEDS: LORATADINE 10 MG TAB PO (08:30)
[2017-08-31] MEDS: HEPARIN 5,000 UNIT/0.5 ML VIAL SC ×2 (08:33→21:03)
[2017-08-31] MEDS: ROPINIROLE 0.25 MG TAB PO (20:50)
[2017-08-31] MEDS: ATORVASTATIN 10 MG TAB PO (20:50)
[2017-08-31] MEDS: INSULIN GLARGINE [LANtus] 3 ML PEN SC (21:02)
[2017-09-01] MEDS: ACCU-CHEK XX (01:22)
[2017-09-01] MEDS: LEVOTHYROXINE 100 MCG TAB PO (06:48)
[2017-09-01] MEDS ORDERED: INSULIN ASPART [NOVOLOG] 3 ML PEN SC (07:35)
[2017-09-01] MEDS: GABAPENTIN 300 MG CAP PO ×3 (08:44→20:51)
[2017-09-01] MEDS: ASPIRIN (EC) 325 MG TAB PO (08:45)
[2017-09-01] MEDS: LINAGLIPTIN 5 MG TABLET PO (08:45)
[2017-09-01] MEDS: EMPAGLIFLOZIN 10 MG TABLET PO (08:45)
[2017-09-01] MEDS: FAMOTIDINE 20 MG TAB PO (08:45)
[2017-09-01] MEDS: LORATADINE 10 MG TAB PO (08:45)
[2017-09-01] MEDS: OXYBUTYNIN (XL) 5 MG TAB PO (08:45)
[2017-09-01] MEDS: FUROSEMIDE 20 MG TAB PO (08:46)
[2017-09-01] MEDS: METOPROLOL (XL) 25 MG TAB PO ×2 (08:46→20:56)
[2017-09-01] MEDS: LINACLOTIDE 145 MCG PO (08:46)
[2017-09-01] MEDS: HYDROCODONE/APAP (5/325) TAB PO (08:46)
[2017-09-01] MEDS: CLOPIDOGREL 75 MG TAB PO (08:46)
[2017-09-01] MEDS: ISOSORBIDE MONONITRATE(SR)30 MG TAB PO (08:46)
[2017-09-01] MEDS: PENTOXIFYLLINE (SR) 400 MG TAB PO ×3 (08:47→17:29)
[2017-09-01] MEDS: INSULIN ASPART [NOVOLOG] 3 ML PEN SC ×7 (08:49→21:13)
[2017-09-01] MEDS: CARBOXYMETHYLCELLULOSE 0.5% 0.4 ML OPH BOTH EYES ×4 (08:50→20:52)
[2017-09-01] MEDS: HEPARIN 5,000 UNIT/0.5 ML VIAL SC ×2 (08:51→21:07)
[2017-09-01] MEDS: ROPINIROLE 0.25 MG TAB PO (20:51)
[2017-09-01] MEDS: ATORVASTATIN 10 MG TAB PO (20:52)
[2017-09-01] MEDS: INSULIN GLARGINE [LANtus] 3 ML PEN SC (21:08)
[2017-09-02] MEDS: ACCU-CHEK XX (02:00)
[2017-09-02] MEDS: LEVOTHYROXINE 100 MCG TAB PO (07:17)
[2017-09-02] MEDS: INSULIN ASPART [NOVOLOG] 3 ML PEN SC ×4 (07:35→12:00)
[2017-09-02] MEDS: PENTOXIFYLLINE (SR) 400 MG TAB PO ×2 (08:11→11:30)
[2017-09-02] MEDS: LINACLOTIDE 145 MCG PO (09:11)
[2017-09-02] MEDS: OXYBUTYNIN (XL) 5 MG TAB PO (09:12)
[2017-09-02] MEDS: EMPAGLIFLOZIN 10 MG TABLET PO (09:12)
[2017-09-02] MEDS: ISOSORBIDE MONONITRATE(SR)30 MG TAB PO (09:12)
[2017-09-02] MEDS: CARBOXYMETHYLCELLULOSE 0.5% 0.4 ML OPH BOTH EYES (09:12)
[2017-09-02] MEDS: GABAPENTIN 300 MG CAP PO (09:13)
[2017-09-02] MEDS: FAMOTIDINE 20 MG TAB PO (09:13)
[2017-09-02] MEDS: LINAGLIPTIN 5 MG TABLET PO (09:13)
[2017-09-02] MEDS: ASPIRIN (EC) 325 MG TAB PO (09:13)
[2017-09-02] MEDS: CLOPIDOGREL 75 MG TAB PO (09:13)
[2017-09-02] MEDS: METOPROLOL (XL) 25 MG TAB PO (09:13)
[2017-09-02] MEDS: HEPARIN 5,000 UNIT/0.5 ML VIAL SC (09:14)
[2017-09-02] MEDS: FUROSEMIDE 20 MG TAB PO (09:14)
[2017-09-02] MEDS: LORATADINE 10 MG TAB PO (09:14)
== END 2017-09-02 12:10 | DRG 945 ==
LOC: VRC 18:52
PROVIDERS: Physical Medicine & Rehabilitation
PROC: F07Z5ZZ Bed Mobility Treatment (ICD-10-PCS; principal; 2017-08-18)
PROC: F08Z2ZZ Grooming/Personal Hygiene Treatment (ICD-10-PCS; 2017-08-18)
PROC: F06Z6ZZ Communicative/Cognitive Integration Skills Treatment (ICD-10-PCS; 2017-08-18)
DX: S09.90XD Unspecified injury of head, subsequent encounter (principal); N39.0 Urinary tract infection, site not specified; M06.9 Rheumatoid arthritis, unspecified; I10 Essential (primary) hypertension; E11.9 Type 2 diabetes mellitus without complications; E78.5 Hyperlipidemia, unspecified; R13.10 Dysphagia, unspecified; I25.10 Atherosclerotic heart disease of native coronary artery without angina pectoris; E03.9 Hypothyroidism, unspecified; D35.00 Benign neoplasm of unspecified adrenal gland; Z79.4 Long term (current) use of insulin; Z79.82 Long term (current) use of aspirin; R53.81 Other malaise; B96.1 Klebsiella pneumoniae [K. pneumoniae] as the cause of diseases classified elsewhere; F06.31 Mood disorder due to known physiological condition with depressive features
CPT/HCPCS: 80053; 81001; 82962; 85025; 87081; 87086; 92507; 92523; 92526; 92610; 94664; 97110; 97112; 97116; 97163; 97530; 97535; 97542

== ENCOUNTER 2017-10-30 15:20 | Inpatient (IN) | payer MEDICARE, OTHER ==
[2017-10-30] MEDS: ALBUTEROL 0.083% (NEB) 2.5 MG/3 ML AMP HHN (16:27)
[2017-10-30] MEDS: IPRATROPIUM (NEB) 0.5 MG/2.5 ML AMP HHN (16:27)
[2017-10-30 16:29] LABS: ADD MAN DIFF? NO
[2017-10-30 16:31] LABS: WHITE BLOOD COUNT 9.7 10^3/ul (4.8-10.8)
[2017-10-30 16:31] LABS: BASOPHILS % 0.2 % (0.0-2.0); EOSINOPHILS % 0.3 % (0.0-7.0); HEMOGLOBIN 15.4 g/dl (12.0-16.0); LYMPHOCYTES % 20.9 % (15.0-51.0); MEAN CORPUSCULAR HEMOGLOBIN 30.6 pg (29.0-33.0); MEAN CORPUSCULAR HGB CONC 34.2 g/dl (32.0-37.0); MEAN CORPUSCULAR VOLUME 89.5 fl (82.0-101.0); MEAN PLATELET VOLUME 10.2 fl (7.4-10.4); MONOCYTE # 0.8 10^3/ul (0.3-0.9); MONOCYTES % 8.1 % (0.0-11.0); NEUTROPHIL # 6.8 10^3/ul (1.6-7.5); NEUTROPHILS % 69.9 % (39.0-77.0); PLATELET COUNT 201 10^3/UL (140-415); RED BLOOD COUNT 5.03 10^6/ul (4.20-5.40); RED CELL DISTRIBUTION WIDTH 12.8 % (11.5-14.5)
[2017-10-30 16:55] LABS: ANION GAP 13 (8-16); BLOOD UREA NITROGEN 19 mg/dl (7-20); CALCIUM 9.4 mg/dl (8.4-10.2); CARBON DIOXIDE 28 mmol/L (21-31); CHLORIDE 101 mmol/L (97-110); CREATININE 0.58 mg/dl (0.44-1.00); GLUCOSE 359 mg/dl (70-220); POTASSIUM 4.1 mmol/L (3.5-5.1); SODIUM 138 mmol/L (135-144)
[2017-10-30 17:06] LABS: B-TYPE NATRIURETIC PEPTIDE 621 PG/ML (0-450); TROPONIN-I < 0.012 ng/ml (0.000-0.120)
[2017-10-30] MEDS: INSULIN LISPRO 100 UNIT/ML VIAL SC (18:40)
[2017-10-30 19:08] LABS: URINE PH (Dip) POC 6.5 (5.0-8.5)
[2017-10-30 19:08] LABS: URINE BLOOD (Dip) POC Negative (NEGATIVE); URINE KETONES (Dip) POC Negative (NEGATIVE); URINE LEUKOCYTE EST (Dip) POC Negative (NEGATIVE); URINE NITRITE (Dip) POC Negative (NEGATIVE); URINE TOTAL PROTEIN POC Negative (NEGATIVE)
[2017-10-30] MEDS ORDERED: ALBUTEROL 0.083% (NEB) 2.5 MG/3 ML AMP HHN (20:04)
[2017-10-30] MEDS: ASPIRIN 81 MG TAB PO (20:08)
[2017-10-30 22:36] LABS: CREATINE KINASE 25 IU/L (23-200)
[2017-10-30 22:48] LABS: CK INDEX 3.2; CK-MB 0.81 ng/ml (0.0-2.4); TROPONIN-I < 0.012 ng/ml (0.000-0.120)
[2017-10-30] MEDS ORDERED: ALBUTEROL/IPRATROPIUM (NEB) 3 ML AMP HHN (23:30)
[2017-10-30] MEDS ORDERED: NON-FORMULARY/PATIENT OWN MED (Sitagliptin Phos/Metformin HCl (Janumet 50-1,000 mg Tablet) PO (23:30)
[2017-10-30] MEDS ORDERED: NACL 0.9% 3 ML SYG IV (23:30)
[2017-10-30] MEDS ORDERED: ONDANSETRON 4 MG INJ IV (23:30)
[2017-10-31] MEDS ORDERED: GLUCOSE GEL 15 GRAM TUBE PO ×2 (01:00)
[2017-10-31] MEDS ORDERED: GLUCAGON 1 MG INJ IM (01:00)
[2017-10-31] MEDS ORDERED: GLUCOSE GEL 15 GRAM TUBE BUCCAL (01:00)
[2017-10-31] MEDS ORDERED: DEXTROSE 50% 50 ML SYRINGE IV ×2 (01:00)
[2017-10-31] MEDS: ACCU-CHEK XX (02:31)
[2017-10-31] MEDS: INSULIN GLARGINE [LANTus] (100 UNITS/ML) SYG SC ×2 (02:39→21:32)
[2017-10-31] MEDS: ACETAMINOPHEN 325 MG TAB PO ×2 (04:49→21:49)
[2017-10-31 05:11] LABS: ADD MAN DIFF? NO
[2017-10-31 05:18] LABS: BASOPHILS % 0.4 % (0.0-2.0); EOSINOPHILS # 0.1 10^3/ul (0.0-0.5); EOSINOPHILS % 1.1 % (0.0-7.0); HEMATOCRIT 40.5 % (37.0-47.0); HEMOGLOBIN 13.9 g/dl (12.0-16.0); LYMPHOCYTES # 1.8 10^3/ul (0.8-2.9); LYMPHOCYTES % 25.2 % (15.0-51.0); MEAN CORPUSCULAR HEMOGLOBIN 30.5 pg (29.0-33.0); MEAN CORPUSCULAR HGB CONC 34.3 g/dl (32.0-37.0); MEAN PLATELET VOLUME 10.6 fl (7.4-10.4); MONOCYTE # 0.6 10^3/ul (0.3-0.9); MONOCYTES % 8.3 % (0.0-11.0); NEUTROPHIL # 4.7 10^3/ul (1.6-7.5); NEUTROPHILS % 64.6 % (39.0-77.0); PLATELET COUNT 179 10^3/UL (140-415); RED BLOOD COUNT 4.55 10^6/ul (4.20-5.40)
[2017-10-31 05:18] LABS: WHITE BLOOD COUNT 7.2 10^3/ul (4.8-10.8)
[2017-10-31 05:26] LABS: HEMOGLOBIN A1C 9.6 % (0-5.9)
[2017-10-31 05:41] LABS: CREATINE KINASE 20 IU/L (23-200)
[2017-10-31 05:46] LABS: ALANINE AMINOTRANSFERASE 18 IU/L (13-69); ALBUMIN 3.1 g/dl (3.3-4.9); ALBUMIN/GLOBULIN RATIO 1.14; ALKALINE PHOSPHATASE 76 IU/L (42-121); ANION GAP 9 (8-16); ASPARTATE AMINO TRANSFERASE 12 IU/L (15-46); BILIRUBIN,INDIRECT 0.3 mg/dl (0-1.1); BILIRUBIN,TOTAL 0.3 mg/dl (0.2-1.3); BLOOD UREA NITROGEN 15 mg/dl (7-20); CALCIUM 8.9 mg/dl (8.4-10.2); CARBON DIOXIDE 32 mmol/L (21-31); CHLORIDE 106 mmol/L (97-110); CREATININE 0.53 mg/dl (0.44-1.00); GLUCOSE 233 mg/dl (70-220); MAGNESIUM 1.7 mg/dl (1.7-2.5); POTASSIUM 3.9 mmol/L (3.5-5.1); SODIUM 143 mmol/L (135-144); TOTAL PROTEIN 5.8 g/dl (6.1-8.1)
[2017-10-31 05:47] LABS: CK INDEX 3.8; CK-MB 0.75 ng/ml (0.0-2.4); TROPONIN-I < 0.012 ng/ml (0.000-0.120)
[2017-10-31] MEDS: LEVOTHYROXINE 100 MCG TAB PO (06:06)
[2017-10-31] MEDS: PANTOPRAZOLE (EC) 40 MG TAB PO (06:06)
[2017-10-31] MEDS: HYDROCODONE/APAP (5/325) TAB PO (06:40)
[2017-10-31] MEDS: EMPAGLIFLOZIN 10 MG TABLET PO ×2 (08:13→08:47)
[2017-10-31] MEDS: metFORMIN 500 MG TAB PO ×2 (08:13→17:46)
[2017-10-31] MEDS: LINAGLIPTIN 5 MG TABLET PO (08:14)
[2017-10-31] MEDS: AMLODIPINE 5 MG TAB PO (08:14)
[2017-10-31] MEDS: CLOPIDOGREL 75 MG TAB PO (08:15)
[2017-10-31] MEDS: ISOSORBIDE MONONITRATE(SR)30 MG TAB PO (08:15)
[2017-10-31] MEDS: FUROSEMIDE 20 MG TAB PO ×2 (08:15→21:36)
[2017-10-31] MEDS: LORATADINE 10 MG TAB PO (08:15)
[2017-10-31] MEDS: PENTOXIFYLLINE (SR) 400 MG TAB PO ×2 (08:16→21:26)
[2017-10-31] MEDS: TOLTERODINE (SR) 4 MG CAP PO (08:16)
[2017-10-31] MEDS: GABAPENTIN 300 MG CAP PO ×3 (08:17→21:26)
[2017-10-31] MEDS: INSULIN ASPART [NOVOLOG] 3 ML PEN SC ×4 (08:46→21:00)
[2017-10-31] MEDS: ENOXAPARIN 40 MG/0.4 ML SYG SC (08:47)
[2017-10-31] MEDS: OXYBUTYNIN (XL) 5 MG TAB PO (13:21)
[2017-10-31] MEDS ORDERED: GUAIFENESIN/DM 5ML CUP PO (17:30)
[2017-10-31] MEDS ORDERED: ALBUTEROL HFA 8 GM INHALER INH (17:30)
[2017-10-31] MEDS: ATORVASTATIN 10 MG TAB PO (21:26)
[2017-11-01] MEDS: ROPINIROLE 0.25 MG TAB PO ×2 (01:35→21:13)
[2017-11-01] MEDS: ACCU-CHEK XX (02:00)
[2017-11-01] MEDS: PANTOPRAZOLE (EC) 40 MG TAB PO (05:48)
[2017-11-01 06:09] LABS: ADD MAN DIFF? NO
[2017-11-01 06:12] LABS: BASOPHILS % 0.3 % (0.0-2.0); EOSINOPHILS # 0.3 10^3/ul (0.0-0.5); HEMATOCRIT 47.2 % (37.0-47.0); HEMOGLOBIN 15.9 g/dl (12.0-16.0); LYMPHOCYTES # 2.4 10^3/ul (0.8-2.9); LYMPHOCYTES % 27.5 % (15.0-51.0); MEAN CORPUSCULAR HEMOGLOBIN 30.5 pg (29.0-33.0); MEAN CORPUSCULAR HGB CONC 33.7 g/dl (32.0-37.0); MEAN CORPUSCULAR VOLUME 90.4 fl (82.0-101.0); MEAN PLATELET VOLUME 10.4 fl (7.4-10.4); MONOCYTE # 0.7 10^3/ul (0.3-0.9); MONOCYTES % 8.2 % (0.0-11.0); NEUTROPHIL # 5.2 10^3/ul (1.6-7.5); NEUTROPHILS % 60.3 % (39.0-77.0); PLATELET COUNT 189 10^3/UL (140-415); RED BLOOD COUNT 5.22 10^6/ul (4.20-5.40); RED CELL DISTRIBUTION WIDTH 13.2 % (11.5-14.5)
[2017-11-01 06:12] LABS: WHITE BLOOD COUNT 8.7 10^3/ul (4.8-10.8)
[2017-11-01] MEDS: LEVOTHYROXINE 100 MCG TAB PO (06:17)
[2017-11-01 06:32] LABS: INR 0.98; PROTIME 13.1 Sec (11.9-14.9)
[2017-11-01 06:40] LABS: ALANINE AMINOTRANSFERASE 24 IU/L (13-69); ALBUMIN 3.7 g/dl (3.3-4.9); ALBUMIN/GLOBULIN RATIO 1.05; ALKALINE PHOSPHATASE 80 IU/L (42-121); ANION GAP 12 (8-16); ASPARTATE AMINO TRANSFERASE 19 IU/L (15-46); BILIRUBIN,INDIRECT 0.5 mg/dl (0-1.1); BILIRUBIN,TOTAL 0.5 mg/dl (0.2-1.3); BLOOD UREA NITROGEN 19 mg/dl (7-20); CALCIUM 9.4 mg/dl (8.4-10.2); CARBON DIOXIDE 34 mmol/L (21-31); CHLORIDE 100 mmol/L (97-110); CREATININE 0.69 mg/dl (0.44-1.00); GLUCOSE 163 mg/dl (70-220); MAGNESIUM 1.7 mg/dl (1.7-2.5); PHOSPHORUS 3.7 mg/dl (2.5-4.9); POTASSIUM 3.5 mmol/L (3.5-5.1); SODIUM 142 mmol/L (135-144); TOTAL PROTEIN 7.2 g/dl (6.1-8.1)
[2017-11-01 06:48] LABS: TROPONIN-I < 0.012 ng/ml (0.000-0.120)
[2017-11-01] MEDS: LINAGLIPTIN 5 MG TABLET PO (08:19)
[2017-11-01] MEDS: metFORMIN 500 MG TAB PO ×2 (08:19→17:15)
[2017-11-01] MEDS: GABAPENTIN 300 MG CAP PO ×3 (08:19→21:13)
[2017-11-01] MEDS: ISOSORBIDE MONONITRATE(SR)30 MG TAB PO (08:20)
[2017-11-01] MEDS: LORATADINE 10 MG TAB PO (08:20)
[2017-11-01] MEDS: PENTOXIFYLLINE (SR) 400 MG TAB PO ×2 (08:20→21:13)
[2017-11-01] MEDS: CLOPIDOGREL 75 MG TAB PO (08:20)
[2017-11-01] MEDS: AMLODIPINE 5 MG TAB PO (08:21)
[2017-11-01] MEDS: FUROSEMIDE 20 MG TAB PO ×3 (08:21→21:12)
[2017-11-01] MEDS: OXYBUTYNIN (XL) 5 MG TAB PO (08:21)
[2017-11-01] MEDS: ASPIRIN (EC) 81 MG TAB PO (08:21)
[2017-11-01] MEDS: EMPAGLIFLOZIN 10 MG TABLET PO (08:32)
[2017-11-01] MEDS: TOLTERODINE (SR) 4 MG CAP PO (08:34)
[2017-11-01] MEDS: ENOXAPARIN 40 MG/0.4 ML SYG SC (09:10)
[2017-11-01] MEDS: INSULIN ASPART [NOVOLOG] 3 ML PEN SC ×4 (09:11→20:36)
[2017-11-01] MEDS: POTASSIUM CHLORIDE 20 MEQ POWDER FOR ORAL SOLN PO ×2 (14:26→21:22)
[2017-11-01] MEDS: MAGNESIUM OXIDE 400 MG TAB PO ×2 (15:51→21:12)
[2017-11-01] MEDS: INSULIN GLARGINE [LANTus] (100 UNITS/ML) SYG SC (20:36)
[2017-11-01] MEDS: ATORVASTATIN 10 MG TAB PO (21:11)
[2017-11-02] MEDS: ACCU-CHEK XX (02:00)
[2017-11-02 06:15] LABS: ADD MAN DIFF? NO
[2017-11-02 06:20] LABS: BASOPHILS % 0.4 % (0.0-2.0); EOSINOPHILS # 0.2 10^3/ul (0.0-0.5); HEMATOCRIT 46.6 % (37.0-47.0); HEMOGLOBIN 15.8 g/dl (12.0-16.0); LYMPHOCYTES # 2.5 10^3/ul (0.8-2.9); MEAN CORPUSCULAR HEMOGLOBIN 30.7 pg (29.0-33.0); MEAN CORPUSCULAR HGB CONC 33.9 g/dl (32.0-37.0); MEAN CORPUSCULAR VOLUME 90.7 fl (82.0-101.0); MEAN PLATELET VOLUME 10.8 fl (7.4-10.4); MONOCYTE # 0.7 10^3/ul (0.3-0.9); MONOCYTES % 9.1 % (0.0-11.0); NEUTROPHIL # 4.5 10^3/ul (1.6-7.5); NEUTROPHILS % 55.7 % (39.0-77.0); PLATELET COUNT 186 10^3/UL (140-415); RED BLOOD COUNT 5.14 10^6/ul (4.20-5.40); RED CELL DISTRIBUTION WIDTH 13.2 % (11.5-14.5)
[2017-11-02 06:39] LABS: ANION GAP 14 (8-16); BLOOD UREA NITROGEN 29 mg/dl (7-20); CALCIUM 9.6 mg/dl (8.4-10.2); CARBON DIOXIDE 32 mmol/L (21-31); CHLORIDE 102 mmol/L (97-110); CREATININE 0.68 mg/dl (0.44-1.00); GLUCOSE 165 mg/dl (70-220); MAGNESIUM 1.8 mg/dl (1.7-2.5); POTASSIUM 3.6 mmol/L (3.5-5.1); SODIUM 144 mmol/L (135-144)
[2017-11-02] MEDS: LEVOTHYROXINE 100 MCG TAB PO (06:50)
[2017-11-02] MEDS: PANTOPRAZOLE (EC) 40 MG TAB PO (06:50)
[2017-11-02] MEDS: INSULIN ASPART [NOVOLOG] 3 ML PEN SC ×2 (07:53→11:37)
[2017-11-02] MEDS: LORATADINE 10 MG TAB PO (08:38)
[2017-11-02] MEDS: PENTOXIFYLLINE (SR) 400 MG TAB PO (08:39)
[2017-11-02] MEDS: POTASSIUM CHLORIDE 20 MEQ POWDER FOR ORAL SOLN PO (08:39)
[2017-11-02] MEDS: CLOPIDOGREL 75 MG TAB PO (08:39)
[2017-11-02] MEDS: MAGNESIUM OXIDE 400 MG TAB PO ×2 (08:39→13:06)
[2017-11-02] MEDS: LINAGLIPTIN 5 MG TABLET PO (08:40)
[2017-11-02] MEDS: metFORMIN 500 MG TAB PO (08:40)
[2017-11-02] MEDS: GABAPENTIN 300 MG CAP PO ×2 (08:42→13:06)
[2017-11-02] MEDS: EMPAGLIFLOZIN 10 MG TABLET PO (08:42)
[2017-11-02] MEDS: OXYBUTYNIN (XL) 5 MG TAB PO (08:43)
[2017-11-02] MEDS: FUROSEMIDE 20 MG TAB PO ×2 (08:43→13:06)
[2017-11-02] MEDS: ISOSORBIDE MONONITRATE(SR)30 MG TAB PO (08:44)
[2017-11-02] MEDS: AMLODIPINE 5 MG TAB PO (08:44)
[2017-11-02] MEDS: ASPIRIN (EC) 81 MG TAB PO (08:45)
[2017-11-02] MEDS: ENOXAPARIN 40 MG/0.4 ML SYG SC (08:50)
[2017-11-02] MEDS: TOLTERODINE (SR) 4 MG CAP PO (09:02)
== END 2017-11-02 15:52 | disposition home or self-care (01) | DRG 293 ==
LOC: E/R 15:20 → TEL 20:14
DX: I50.33 Acute on chronic diastolic (congestive) heart failure (principal); I25.10 Atherosclerotic heart disease of native coronary artery without angina pectoris; E11.65 Type 2 diabetes mellitus with hyperglycemia; M06.9 Rheumatoid arthritis, unspecified; Z95.5 Presence of coronary angioplasty implant and graft; E78.5 Hyperlipidemia, unspecified; M12.812 Other specific arthropathies, not elsewhere classified, left shoulder; I10 Essential (primary) hypertension
CPT/HCPCS: 36415; 71045; 80048; 80053; 80076; 81003; 82550; 82553; 82962; 83036; 83735; 83880; 84100; 84443; 84484; 85025; 85610; 87400; 93005; 93306; 94664; 96372; 97162; 97530; 99285-25

== ENCOUNTER 2018-01-29 19:56 | Inpatient (IN) | payer MEDICARE, OTHER ==
[2018-01-29 21:46] LABS: ADD MAN DIFF? NO
[2018-01-29 21:50] LABS: BASOPHILS % 0.4 % (0.0-2.0); EOSINOPHILS # 0.3 10^3/ul (0.0-0.5); EOSINOPHILS % 3.8 % (0.0-7.0); HEMATOCRIT 40.3 % (37.0-47.0); HEMOGLOBIN 13.7 g/dl (12.0-16.0); LYMPHOCYTES # 1.8 10^3/ul (0.8-2.9); LYMPHOCYTES % 21.2 % (15.0-51.0); MEAN CORPUSCULAR HEMOGLOBIN 30.8 pg (29.0-33.0); MEAN CORPUSCULAR VOLUME 90.6 fl (82.0-101.0); MEAN PLATELET VOLUME 10.5 fl (7.4-10.4); MONOCYTE # 0.6 10^3/ul (0.3-0.9); MONOCYTES % 7.5 % (0.0-11.0); NEUTROPHIL # 5.6 10^3/ul (1.6-7.5); NEUTROPHILS % 66.4 % (39.0-77.0); PLATELET COUNT 178 10^3/UL (140-415); RED BLOOD COUNT 4.45 10^6/ul (4.20-5.40); RED CELL DISTRIBUTION WIDTH 12.4 % (11.5-14.5)
[2018-01-29 21:50] LABS: WHITE BLOOD COUNT 8.4 10^3/ul (4.8-10.8)
[2018-01-29] MEDS: SOD CHLORIDE 0.9% 1,000 ML IV (21:51)
[2018-01-29 22:13] LABS: ANION GAP 11 (5-13); BLOOD UREA NITROGEN 16 mg/dl (7-20); CALCIUM 8.9 mg/dl (8.4-10.2); CARBON DIOXIDE 24 mmol/L (21-31); CHLORIDE 101 mmol/L (97-110); CREATININE 0.52 mg/dl (0.44-1.00); SODIUM 136 mmol/L (135-144)
[2018-01-29 22:13] LABS: LACTIC ACID 2.2 mmol/L (0.5-2.0)
[2018-01-29 22:17] LABS: GLUCOSE 461 mg/dl (70-220)
[2018-01-29 22:39] LABS: ADD UMIC YES; UR ASCORBIC ACID NEGATIVE (NEGATIVE); UR BILIRUBIN (Dip) NEGATIVE (NEGATIVE); UR BLOOD (Dip) NEGATIVE (NEGATIVE); UR CLARITY CLEAR (CLEAR); UR COLOR YELLOW (YELLOW); UR GLUCOSE (Dip) 3+ mg/dL (NEGATIVE); UR KETONES (Dip) NEGATIVE (NEGATIVE); UR LEUKOCYTE ESTERASE (Dip) NEGATIVE Leu/ul (NEGATIVE); UR MUCUS FEW /HPF (NONE SEEN); UR NITRITE (Dip) POSITIVE (NEGATIVE); UR RBC 2 /HPF (0-5); UR SPECIFIC GRAVITY (Dip) 1.033 (1.003-1.030); UR SQUAMOUS EPITHELIAL CELL FEW /HPF (FEW); UR TOTAL PROTEIN (Dip) NEGATIVE (NEGATIVE); UR UROBILINOGEN (Dip) NEGATIVE (NEGATIVE); UR WBC 5 /HPF (0-5)
[2018-01-29] MEDS: CEFEPIME 2GM/50 ML (PMX) 50 ML IVPB (22:43)
[2018-01-29] MEDS: SODIUM CHLORIDE 0.9% 1L BAG IV* (22:43)
[2018-01-29] MEDS: VANCOMYCIN 1 GM (PMX) 250 ML IVPB (23:30)
[2018-01-30 00:01] LABS: LACTIC ACID 1.7 mmol/L (0.5-2.0)
[2018-01-30 02:08] LABS: LACTIC ACID 1.4 mmol/L (0.5-2.0)
[2018-01-30] MEDS ORDERED: NACL 0.9% 3 ML SYG IV (03:30)
[2018-01-30] MEDS ORDERED: morphine 2 MG INJ IV (03:30)
[2018-01-30] MEDS ORDERED: ONDANSETRON 4 MG INJ IV (03:30)
[2018-01-30] MEDS ORDERED: DOCUSATE SODIUM 100 MG CAP PO (03:30)
[2018-01-30] MEDS ORDERED: VANCOMYCIN IV PER PHARMACY XX (03:30)
[2018-01-30] MEDS ORDERED: GLUCAGON 1 MG INJ IM (04:00)
[2018-01-30] MEDS ORDERED: DEXTROSE 50% 50 ML SYRINGE IV ×2 (04:00)
[2018-01-30] MEDS ORDERED: GLUCOSE GEL 15 GRAM TUBE BUCCAL (04:00)
[2018-01-30] MEDS ORDERED: GLUCOSE GEL 15 GRAM TUBE PO ×2 (04:00)
[2018-01-30] MEDS: SOD CHLORIDE 0.9% 1,000 ML IV (04:27)
[2018-01-30] MEDS ORDERED: HEPARIN 5,000 UNIT/0.5 ML VIAL ×2 (05:26→13:10)
[2018-01-30] MEDS: LEVOTHYROXINE 100 MCG TAB PO (06:05)
[2018-01-30] MEDS: PANTOPRAZOLE (EC) 40 MG TAB PO (06:06)
[2018-01-30] MEDS: HEPARIN 5,000 UNIT/1 ML VIAL SC ×3 (06:07→21:28)
[2018-01-30] MEDS: INSULIN ASPART [NOVOLOG] 3 ML PEN SC (08:31)
[2018-01-30] MEDS: GABAPENTIN 300 MG CAP PO (08:56)
[2018-01-30] MEDS: LISINOPRIL 5 MG TAB PO (08:58)
[2018-01-30] MEDS: LORATADINE 10 MG TAB PO (08:59)
[2018-01-30] MEDS: CYANOCOBALAMIN 500 MCG TAB PO (08:59)
[2018-01-30] MEDS: FUROSEMIDE 20 MG TAB PO (08:59)
[2018-01-30] MEDS: MAGNESIUM OXIDE 400 MG TAB PO ×3 (08:59→21:26)
[2018-01-30] MEDS: AMLODIPINE 5 MG TAB PO (08:59)
[2018-01-30] MEDS: CLOPIDOGREL 75 MG TAB PO (09:00)
[2018-01-30] MEDS: ISOSORBIDE MONONITRATE(SR)30 MG TAB PO (09:00)
[2018-01-30] MEDS: CHOLECALCIFEROL 2,000 UNIT CAP PO (09:00)
[2018-01-30] MEDS: TOLTERODINE (SR) 4 MG CAP PO (09:00)
[2018-01-30] MEDS ORDERED: OXYBUTYNIN (XL) 5 MG TAB PO (09:00)
[2018-01-30] MEDS: ASPIRIN (EC) 81 MG TAB PO (09:00)
[2018-01-30] MEDS: CEFEPIME 2GM/50 ML (PMX) 50 ML IVPB (09:01)
[2018-01-30] MEDS: PENTOXIFYLLINE (SR) 400 MG TAB PO (09:03)
[2018-01-30] MEDS: LEVOFLOXACIN 500 MG TAB PO (13:15)
[2018-01-30] MEDS: EMPAGLIFLOZIN 10 MG TABLET PO (14:14)
[2018-01-30] MEDS: metFORMIN 500 MG TAB PO (17:44)
[2018-01-30] MEDS: INSULIN GLARGINE [LANTus] (100 UNITS/ML) SYG SC (21:27)
[2018-01-30] MEDS: ROPINIROLE 0.25 MG TAB PO (21:39)
[2018-01-30] MEDS ORDERED: VANCOMYCIN 500MG/NS (PMX) 100 ML IVPB (23:00)
[2018-01-30] MEDS: ACETAMINOPHEN 325 MG TAB PO (23:45)
[2018-01-31] MEDS ORDERED: ACCU-CHEK XX (02:00)
[2018-01-31] MEDS: LEVOFLOXACIN 500 MG TAB PO (05:48)
[2018-01-31] MEDS: PANTOPRAZOLE (EC) 40 MG TAB PO (05:49)
[2018-01-31] MEDS: HEPARIN 5,000 UNIT/1 ML VIAL SC ×3 (05:49→21:47)
[2018-01-31] MEDS: LEVOTHYROXINE 100 MCG TAB PO (06:17)
[2018-01-31 07:20] LABS: ADD MAN DIFF? NO
[2018-01-31 07:24] LABS: BASOPHILS % 0.3 % (0.0-2.0); EOSINOPHILS # 0.3 10^3/ul (0.0-0.5); EOSINOPHILS % 4.7 % (0.0-7.0); HEMATOCRIT 42.4 % (37.0-47.0); HEMOGLOBIN 14.1 g/dl (12.0-16.0); LYMPHOCYTES # 1.8 10^3/ul (0.8-2.9); LYMPHOCYTES % 26.6 % (15.0-51.0); MEAN CORPUSCULAR HEMOGLOBIN 30.1 pg (29.0-33.0); MEAN CORPUSCULAR HGB CONC 33.3 g/dl (32.0-37.0); MEAN CORPUSCULAR VOLUME 90.4 fl (82.0-101.0); MEAN PLATELET VOLUME 10.1 fl (7.4-10.4); MONOCYTE # 0.4 10^3/ul (0.3-0.9); MONOCYTES % 6.4 % (0.0-11.0); NEUTROPHIL # 4.2 10^3/ul (1.6-7.5); NEUTROPHILS % 61.4 % (39.0-77.0); PLATELET COUNT 164 10^3/UL (140-415); RED BLOOD COUNT 4.69 10^6/ul (4.20-5.40); RED CELL DISTRIBUTION WIDTH 12.7 % (11.5-14.5)
[2018-01-31 07:24] LABS: WHITE BLOOD COUNT 6.8 10^3/ul (4.8-10.8)
[2018-01-31 08:01] LABS: ALANINE AMINOTRANSFERASE 22 IU/L (13-69); ALBUMIN 3.4 g/dl (3.3-4.9); ALKALINE PHOSPHATASE 94 IU/L (42-121); ANION GAP 7 (5-13); ASPARTATE AMINO TRANSFERASE 15 IU/L (15-46); BILIRUBIN,INDIRECT 0.4 mg/dl (0-1.1); BILIRUBIN,TOTAL 0.4 mg/dl (0.2-1.3); BLOOD UREA NITROGEN 15 mg/dl (7-20); CALCIUM 9.1 mg/dl (8.4-10.2); CARBON DIOXIDE 31 mmol/L (21-31); CHLORIDE 104 mmol/L (97-110); CREATININE 0.61 mg/dl (0.44-1.00); GLUCOSE 135 mg/dl (70-220); MAGNESIUM 1.6 mg/dl (1.7-2.5); PHOSPHORUS 3.2 mg/dl (2.5-4.9); POTASSIUM 3.4 mmol/L (3.5-5.1); SODIUM 142 mmol/L (135-144)
[2018-01-31 08:09] LABS: FREE THYROXINE INDEX (Calc) 3.53 ug/ml (0.65-3.89); T4 (THYROXINE) 8.6 ug/dl (5.5-11.0)
[2018-01-31] MEDS: ASPIRIN (EC) 81 MG TAB PO (08:28)
[2018-01-31] MEDS: metFORMIN 500 MG TAB PO ×2 (08:28→17:36)
[2018-01-31] MEDS: CLOPIDOGREL 75 MG TAB PO (08:29)
[2018-01-31] MEDS: ISOSORBIDE MONONITRATE(SR)30 MG TAB PO (08:29)
[2018-01-31] MEDS: MAGNESIUM OXIDE 400 MG TAB PO ×3 (08:29→21:34)
[2018-01-31] MEDS: EMPAGLIFLOZIN 10 MG TABLET PO (08:29)
[2018-01-31] MEDS: FUROSEMIDE 20 MG TAB PO (08:29)
[2018-01-31] MEDS: LISINOPRIL 5 MG TAB PO (08:32)
[2018-01-31 08:55] LABS: HEMOGLOBIN A1C 9.3 % (0-5.9)
[2018-01-31] MEDS: POTASSIUM CHLORIDE (SR) 20 MEQ TAB PO (11:28)
[2018-01-31] MEDS: POLYETHYLENE GLYCOL 17 GM PACKET PO ×2 (11:28→21:35)
[2018-01-31] MEDS ORDERED: GUAIFENESIN/DM 5ML CUP PO (11:30)
[2018-01-31] MEDS ORDERED: DOCUSATE SODIUM 100 MG CAP PO (11:30)
[2018-01-31] MEDS ORDERED: NA PHOSPHATE/BIPHOS 133 ML ENEMA PR (11:30)
[2018-01-31] MEDS ORDERED: morphine LIQ (10 MG/5 ML) CUP PO (16:30)
[2018-01-31] MEDS: ROPINIROLE 0.25 MG TAB PO (21:34)
[2018-01-31] MEDS: INSULIN GLARGINE [LANTus] (100 UNITS/ML) SYG SC (21:34)
[2018-01-31] MEDS: ACETAMINOPHEN 325 MG TAB PO (21:58)
[2018-02-01] MEDS: PANTOPRAZOLE (EC) 40 MG TAB PO (05:34)
[2018-02-01] MEDS: LEVOFLOXACIN 500 MG TAB PO (05:35)
[2018-02-01] MEDS: HEPARIN 5,000 UNIT/1 ML VIAL SC ×2 (05:36→13:40)
[2018-02-01] MEDS: LEVOTHYROXINE 100 MCG TAB PO (06:21)
[2018-02-01] MEDS: NA PHOSPHATE/BIPHOS 133 ML ENEMA PR (06:29)
[2018-02-01 06:53] LABS: ADD MAN DIFF? NO
[2018-02-01 06:58] LABS: BASOPHILS % 0.5 % (0.0-2.0); EOSINOPHILS # 0.3 10^3/ul (0.0-0.5); EOSINOPHILS % 3.7 % (0.0-7.0); HEMATOCRIT 44.8 % (37.0-47.0); HEMOGLOBIN 15.1 g/dl (12.0-16.0); LYMPHOCYTES # 2.6 10^3/ul (0.8-2.9); MEAN CORPUSCULAR HEMOGLOBIN 30.9 pg (29.0-33.0); MEAN CORPUSCULAR HGB CONC 33.7 g/dl (32.0-37.0); MEAN CORPUSCULAR VOLUME 91.6 fl (82.0-101.0); MEAN PLATELET VOLUME 10.5 fl (7.4-10.4); MONOCYTE # 0.6 10^3/ul (0.3-0.9); MONOCYTES % 7.6 % (0.0-11.0); NEUTROPHIL # 4.3 10^3/ul (1.6-7.5); NEUTROPHILS % 54.8 % (39.0-77.0); PLATELET COUNT 177 10^3/UL (140-415); RED BLOOD COUNT 4.89 10^6/ul (4.20-5.40); RED CELL DISTRIBUTION WIDTH 12.8 % (11.5-14.5)
[2018-02-01 06:58] LABS: WHITE BLOOD COUNT 7.9 10^3/ul (4.8-10.8)
[2018-02-01 07:49] LABS: MAGNESIUM 1.8 mg/dl (1.7-2.5)
[2018-02-01 07:50] LABS: ANION GAP 11 (5-13); BLOOD UREA NITROGEN 20 mg/dl (7-20); CALCIUM 9.4 mg/dl (8.4-10.2); CARBON DIOXIDE 30 mmol/L (21-31); CHLORIDE 103 mmol/L (97-110); GLUCOSE 66 mg/dl (70-220); POTASSIUM 3.4 mmol/L (3.5-5.1); SODIUM 144 mmol/L (135-144)
[2018-02-01] MEDS: metFORMIN 500 MG TAB PO (08:17)
[2018-02-01] MEDS: ISOSORBIDE MONONITRATE(SR)30 MG TAB PO (08:34)
[2018-02-01] MEDS: CLOPIDOGREL 75 MG TAB PO (08:34)
[2018-02-01] MEDS: EMPAGLIFLOZIN 10 MG TABLET PO (08:35)
[2018-02-01] MEDS: MAGNESIUM OXIDE 400 MG TAB PO ×2 (08:35→12:58)
[2018-02-01] MEDS: FUROSEMIDE 20 MG TAB PO (08:35)
[2018-02-01] MEDS: LISINOPRIL 5 MG TAB PO (08:35)
[2018-02-01] MEDS: ASPIRIN (EC) 81 MG TAB PO (08:35)
[2018-02-01] MEDS: POLYETHYLENE GLYCOL 17 GM PACKET PO (08:35)
[2018-02-01] MEDS: POTASSIUM CHLORIDE (SR) 20 MEQ TAB PO (12:58)
== END 2018-02-01 17:09 | disposition home or self-care (01) | DRG 194 ==
LOC: PP2 23:05 → E/R 19:56
PROVIDERS: Internal Medicine
DX: J18.9 Pneumonia, unspecified organism (principal); E11.65 Type 2 diabetes mellitus with hyperglycemia; N39.0 Urinary tract infection, site not specified; I11.0 Hypertensive heart disease with heart failure; I50.9 Heart failure, unspecified; I25.10 Atherosclerotic heart disease of native coronary artery without angina pectoris; E03.9 Hypothyroidism, unspecified; K59.00 Constipation, unspecified; B95.2 Enterococcus as the cause of diseases classified elsewhere; Z79.4 Long term (current) use of insulin; Z79.82 Long term (current) use of aspirin
CPT/HCPCS: 36415; 71045; 80048; 80053; 81001; 82962; 83036; 83605; 83735; 84100; 84436; 84479; 85025; 87040; 87086; 93005; 96361; 96365; 97161; 99291-25

== ENCOUNTER 2018-03-17 19:20 | Emergency (ER) | payer MEDICARE, OTHER ==
[2018-03-17 20:56] LABS: ADD MAN DIFF? NO
[2018-03-17 20:58] LABS: WHITE BLOOD COUNT 7.9 10^3/ul (4.8-10.8)
[2018-03-17 20:58] LABS: BASOPHILS % 0.5 % (0.0-2.0); EOSINOPHILS # 0.3 10^3/ul (0.0-0.5); EOSINOPHILS % 3.7 % (0.0-7.0); HEMOGLOBIN 15.3 g/dl (12.0-16.0); LYMPHOCYTES # 1.8 10^3/ul (0.8-2.9); LYMPHOCYTES % 22.3 % (15.0-51.0); MEAN CORPUSCULAR HEMOGLOBIN 30.7 pg (29.0-33.0); MEAN CORPUSCULAR VOLUME 90.2 fl (82.0-101.0); MEAN PLATELET VOLUME 10.2 fl (7.4-10.4); MONOCYTE # 0.7 10^3/ul (0.3-0.9); MONOCYTES % 8.5 % (0.0-11.0); NEUTROPHIL # 5.1 10^3/ul (1.6-7.5); NEUTROPHILS % 64.4 % (39.0-77.0); PLATELET COUNT 200 10^3/UL (140-415); RED BLOOD COUNT 4.99 10^6/ul (4.20-5.40); RED CELL DISTRIBUTION WIDTH 12.4 % (11.5-14.5)
[2018-03-17 21:14] LABS: ALANINE AMINOTRANSFERASE 44 IU/L (13-69); ALBUMIN 4.4 g/dl (3.3-4.9); ALBUMIN/GLOBULIN RATIO 1.15; ALKALINE PHOSPHATASE 120 IU/L (42-121); ANION GAP 13 (5-13); ASPARTATE AMINO TRANSFERASE 57 IU/L (15-46); BILIRUBIN,INDIRECT 0.3 mg/dl (0-1.1); BILIRUBIN,TOTAL 0.3 mg/dl (0.2-1.3); BLOOD UREA NITROGEN 21 mg/dl (7-20); CARBON DIOXIDE 25 mmol/L (21-31); CHLORIDE 103 mmol/L (97-110); CREATININE 0.64 mg/dl (0.44-1.00); GLUCOSE 187 mg/dl (70-220); POTASSIUM 3.8 mmol/L (3.5-5.1); SODIUM 141 mmol/L (135-144); TOTAL PROTEIN 8.2 g/dl (6.1-8.1)
[2018-03-17 21:25] LABS: B-TYPE NATRIURETIC PEPTIDE 303 PG/ML (0-450); TROPONIN-I < 0.012 ng/ml (0.000-0.120)
[2018-03-17 22:05] LABS: INR 0.92; PROTIME 12.5 Sec (11.9-14.9)
[2018-03-17] MEDS: ALBUTEROL 0.083% (NEB) 2.5 MG/3 ML AMP NEB (22:17)
[2018-03-17] MEDS: IPRATROPIUM (NEB) 0.5 MG/2.5 ML AMP NEB (22:17)
[2018-03-17] MEDS: DEXAMETHASONE 10 MG/ML 1 ML INJ IV (22:27)
== END 2018-03-17 22:49 | disposition home or self-care (01) ==
LOC: E/R 19:20
DX: S09.90XA Unspecified injury of head, initial encounter (principal); J45.901 Unspecified asthma with (acute) exacerbation; I11.0 Hypertensive heart disease with heart failure; I50.9 Heart failure, unspecified; I25.10 Atherosclerotic heart disease of native coronary artery without angina pectoris; E03.9 Hypothyroidism, unspecified; R51 Headache; W01.118A Fall on same level from slipping, tripping and stumbling with subsequent striking against other sharp object, initial encounter; Y92.9 Unspecified place or not applicable; Z98.61 Coronary angioplasty status; Z79.4 Long term (current) use of insulin; Z79.82 Long term (current) use of aspirin; Z79.01 Long term (current) use of anticoagulants
CPT/HCPCS: 36415; 70450; 71045; 80053; 83880; 84484; 85025; 85610; 93005; 94664; 96374; 99285-25

== ENCOUNTER 2018-09-18 17:11 | Emergency (ER) | payer MEDICARE, OTHER ==
[2018-09-18] MEDS: FUROSEMIDE 20 MG TAB PO (19:00)
[2018-09-18] MEDS: TRIMETHOPRIM/SULFAMETHOX (DS) TAB PO (19:00)
[2018-09-18] MEDS: ACETAMINOPHEN 325 MG TAB PO (19:00)
[2018-09-18] MEDS: CEPHALEXIN 500 MG CAP PO (19:00)
== END 2018-09-18 19:14 | disposition home or self-care (01) ==
LOC: E/R 17:11
DX: L03.116 Cellulitis of left lower limb (principal); I11.0 Hypertensive heart disease with heart failure; I50.9 Heart failure, unspecified; I25.10 Atherosclerotic heart disease of native coronary artery without angina pectoris; E03.9 Hypothyroidism, unspecified; J45.909 Unspecified asthma, uncomplicated; E11.9 Type 2 diabetes mellitus without complications; Z79.82 Long term (current) use of aspirin; Z79.84 Long term (current) use of oral hypoglycemic drugs; Z79.02 Long term (current) use of antithrombotics/antiplatelets
CPT/HCPCS: 99283